=== PATIENT | female | born 1990 | race Caucasian/White ===

== ENCOUNTER → 2019-08-23 08:06 | Outpatient (CLI) | payer MEDICAID, SELFPAY ==
[2019-08-13 14:19] VITALS: BMI 29.0
[2019-08-23 12:42] LABS: Absolute Lymphocyte Count 1.41 X10^3/uL (0.83-4.51); Absolute Neutrophil Count 4.1 X10^3/uL (2.0-7.7); Basophil# 0.04 X10^3/uL; Basophil% 0.6 % (0-1); Eosinophil# 0.24 X10^3/uL; Eosinophils% 3.8 % (0-5); Hematocrit 38.6 % (37-47); Hemoglobin 12.3 g/dL (12.0-15.0); Lymphocyte # 1.41 X10^3/ul (4.0); Lymphocyte % 22.3 % (19-41); Mean Corp Hgb Conc 31.9 g/dL (32-36); Mean Corpuscular Hgb 29.3 pg (27.0-32.0); Mean Corpuscular Volume 91.9 fL (81-99); Mean Platelet Vol. 11.9 fl (6.2-12.0); Monocyte# 0.46 X10^3/uL; Monocyte% 7.3 % (0-10); NRBC Flagged by Analyzer 0 % (0-5); Neutrophil # 4.14 X10^3/uL (2.7-7.7); Neutrophil % 65.7 % (47-70); Platelet Count 231 K/mm3 (150-450); RBC Distribution Width CV 14.1 % (11.6-14.6); RBC Distribution Width SD 47.6 fl (35.1-43.9); White Blood Count 6.3 K/mm3 (4.4-11.0)
[2019-08-23 13:42] LABS: ALB/GLOB Ratio 0.9 RATIO (0.9-2.4); AST(SGOT) 76 U/L (15-37); Alanine Aminotransfer ALT/SGPT 159 U/L (13-56); Albumin, Serum 3.7 g/dL (3.2-5.0); Alkaline Phosphatase 90 U/L (45-117); Anion Gap 9 (5-15); BUN 12 mg/dL (7-18); BUN/Creat Ratio 16.3 RATIO (10-20); Chloride 108 mmol/L (98-107); Cholesterol 187 mg/dL (200); Creatinine, Serum 0.74 mg/dL (0.55-1.02); EST Glomerular Filtration Rate 99 mL/min (>60); Est Glom Filt Rate - Afr Amer 119 mL/min (>60); Globulin 4.2 g/dL (2.2-4.2); Glucose 78 mg/dL (74-106); High Density Lipoprotein 59 mg/dL; Potassium 4.2 mmol/L (3.5-5.1); Protein, Total 7.9 g/dL (6.4-8.2); Sodium Level 140 mmol/L (136-145); Thyroid Stim Hormone (TSH) 0.58 uIU/mL (0.358-3.74); Triglycerides 78 mg/dL; Very Low Density Lipoprotein 16 mg/dL (5-40)
[2019-08-26 14:29] LABS: Hepatitis C Ab >11.0 s/co ratio (0.0-0.9)
[2019-08-26 16:12] LABS: HCV log 10 6.751 (.)
== END ==
PROVIDERS: PCP Internal Medicine; Visit Provider Nurse Practitioner Family
DX: I10 Essential (primary) hypertension (principal); F31.9 Bipolar disorder, unspecified; B19.20 Unspecified viral hepatitis C without hepatic coma; F41.9 Anxiety disorder, unspecified
CPT/HCPCS: 36415; 80053; 80061; 84443; 85025; 86803; 86804; 87521; 87522

== ENCOUNTER 2020-09-28 20:01 | Emergency (ER) | payer MEDICAID, SELFPAY ==
[2019-08-13 14:19] VITALS: BMI 29.0
[2020-09-28 20:02] VITALS: BP 161/109; PULSE 118; RESP 18; TEMP 35.9; O2SAT 100; BMI 31.9
--- NOTE | 2020-09-28 20:50 | ED.VIS.GEN ---
History of Present Illness Chief Complaint: Abscess Informant: Patient Narrative: 29-year-old female presenting with right thumb pain. She states she has an abrasion which look infected. She had some scant drainage from it. She states it is tender to palpation. She not had any systemic signs or symptoms. Patient has a history of MRSA. She is also allergic to sulfa. Prior similar symptoms: Yes - Past Medical History (1) Asthma Status: Chronic (2) Bipolar 1 disorder Status: Chronic (3) Hepatitis C Status: Chronic Past Medical History - Allergies and Home Meds Allergies/Adverse Reactions: Allergies ketorolac tromethamine [From Toradol] Allergy (Verified 08/13/19 13:10) Hives Sulfa (Sulfonamide Antibiotics) Allergy (Verified 08/13/19 13:10) Swelling tramadol Allergy (Verified 08/13/19 13:10) Itching acetaminophen [From Tylenol] Adverse Reaction (Verified 08/13/19 13:10) Other LIVER DAMAGE Primary Care Physician: NOT,DEFINED [Primary Care Provider] - Prior records reviewed: Yes Past Medical History: - - Reviewed in problem list Surgical History: noncontributory, - - tubal ligation. laparoscopy. I&D right axillary abscess. Lives: Alone Smoking Status: Current every day smoker Alcohol: Rare Drugs: None - Family History Maternal Family History: Family History (Last Updated 08/09/19 @ 16:16 by Chela Murillo) Other Depression Hypertension Family History: Reports: No pertinent history Review of Systems General: Denies: Chills, Fever, Sweats Eyes: Denies: Visual changes - bilaterally, Diplopia ENT: Denies: Rhinorrhea, Sore throat Cardiovascular: Denies: Chest pain, Palpitations Respiratory: Denies: Dyspnea, Cough, Dyspnea on exertion Gastrointestinal: Denies: Abdominal pain, Nausea, Vomiting, Diarrhea, Melena, Hematochezia Genitourinary: Denies: Dysuria, Hematuria, Frequency Musculoskeletal: Reports: - - Right thumb pain. Denies: Arthralgias Skin: Reports: Rash, Wounds, - Neurological: Denies: Headache, Weakness, Numbness Psych: Denies: Depression, Anxiety Physical Exam Vital Signs/Narrative: Vital Signs Temp Pulse Resp BP Pulse Ox 09/28/20 20:02 96.6 F L 118 H 18 161/109 H 100 General: Well nourished, No Acute Distress Head: Normocephalic, Atraumatic Eyes: Perrl, EOMI ENT: Moist mucous membranes, No rhinorrhea Cardiovascular: Regular rate, Regular rhythm Respiratory: No distress, CTA bilaterally Extremities: Tenderness - Right thumb tenderness, -. Negative for: No edema Skin: Rash - Erythema and warmth over the dorsum of the right thumb proximal to the interphalangeal joint. There is no fluctuance or mass. There is no pain full range of motion of the joints. Neurological: Alert, Oriented x3 Psychological: Normal affect, Normal Mood Diagnostic/Tx/Re-eval - Medical Decision Making Patient presents with pain and redness over the right thumb. There is some area of erythema and swelling. There is no fluctuant mass. There not appear to be an infection of the joints. Patient was given 1 oxycodone in the ER which was first dose of clindamycin. Patient requests something to help her rest at night. I gave her some hydroxyzine. Patient is given wound care instructions and return precautions. Stable for discharge at this time. Impression: 1. Right thumb cellulitis ED Disposition - Plan for ED Patient: Disposition: Home or Assisted Living Instructions: ED Cellulitis Prescriptions: Clindamycin [Cleocin] 450 mg PO TID #90 cap Transmission Status: Pending to [facility] [place] [id number] Hydroxyzine HCl 25 mg PO QHS PRN PRN #10 tab PRN Reason: Insomnia Transmission Status: Pending to [facility] [id number] Referrals: NOT,DEFINED [Primary Care Provider] -
[2020-09-28] MEDS: hydrOXYzine PAM 25 MG Capsule PO (21:06)
[2020-09-28] MEDS: Clindamycin HCl 150 MG Capsule 450 MG PO (21:07)
== END 2020-09-28 21:24 | disposition home or self-care (01) ==
PROVIDERS: Emergency Provider Student in an Organized Health Care Education/Training Program
DX: L03.011 Cellulitis of right finger (principal); Z86.14 Personal history of Methicillin resistant Staphylococcus aureus infection; J45.909 Unspecified asthma, uncomplicated; F31.9 Bipolar disorder, unspecified; Z79.899 Other long term (current) drug therapy; F17.200 Nicotine dependence, unspecified, uncomplicated
CPT/HCPCS: 99283

== ENCOUNTER 2020-11-14 16:07 | Emergency (ER) | payer MEDICAID, SELFPAY ==
[2020-11-14 16:08] VITALS: BP 153/106; PULSE 102; RESP 16; TEMP 36.6; O2SAT 100; BMI 31.6
--- NOTE | 2020-11-14 16:18 | ED.VIS.GEN ---
History of Present Illness Chief Complaint: Med Refill Informant: Patient Narrative: 29-year-old female presenting for medication refill. She states has been out of her blood pressure medications because she has been in a clean house. She has not followed up with her primary care to get them refilled. She has a mild headache but no other symptoms. Patient also states that she has anxiety and is usually on Vistaril and request a refill for this as well. - Past Medical History (1) History of substance abuse Status: Chronic (2) Bipolar 1 disorder Status: Chronic (3) Hypertension Status: Chronic (4) Asthma Status: Chronic Past Medical History - Allergies and Home Meds Allergies/Adverse Reactions: Allergies ketorolac tromethamine [From Toradol] Allergy (Verified 11/14/20 16:10) Hives Sulfa (Sulfonamide Antibiotics) Allergy (Verified 11/14/20 16:10) Swelling tramadol Allergy (Verified 11/14/20 16:10) Itching acetaminophen [From Tylenol] Adverse Reaction (Verified 11/14/20 16:10) Other LIVER DAMAGE Primary Care Physician: Care Physician,No Primary [Primary Care Provider] - Prior records reviewed: Yes Past Medical History: - - Reviewed in problem list Surgical History: noncontributory, - - tubal ligation. laparoscopy. I&D right axillary abscess. Lives: - - Sober house Smoking Status: Current every day smoker Alcohol: None Drugs: None - Family History Maternal Family History: Family History (Last Updated 08/09/19 @ 16:16 by Chela Murillo) Other Depression Hypertension Family History: Reports: No pertinent history Review of Systems General: Denies: Chills, Fever, Sweats Eyes: Denies: Visual changes - bilaterally, Diplopia ENT: Denies: Rhinorrhea, Sore throat Cardiovascular: Denies: Chest pain, Palpitations Respiratory: Denies: Dyspnea, Cough, Dyspnea on exertion Gastrointestinal: Denies: Abdominal pain, Nausea, Vomiting, Diarrhea, Melena, Hematochezia Genitourinary: Denies: Dysuria, Hematuria, Frequency Musculoskeletal: Denies: Back pain, Extremity Pain Skin: Denies: Rash, Wounds Neurological: Reports: Headache. Denies: Weakness, Parasthesia, Numbness Psych: Reports: Anxiety. Denies: Depression, Suicidal thoughts, Suicidal ideations Physical Exam Vital Signs/Narrative: Vital Signs Temp Pulse Resp BP Pulse Ox 11/14/20 16:08 97.9 F 102 H 16 153/106 H 100 Inital Vital Signs reviewed: Yes General: Well nourished, No Acute Distress Head: Normocephalic, Atraumatic Eyes: Perrl, EOMI ENT: Moist mucous membranes, No rhinorrhea Cardiovascular: Regular rate, Regular rhythm Skin: Normal color, No rash Neurological: Alert, Oriented x3, Cranial nerves II-XII grossly intact Psychological: Normal affect, Normal Mood Diagnostic/Tx/Re-eval - Medical Decision Making Patient presenting for medication refill because she is living at a sober house and has not been able to follow-up with a PCP. Patient's states she states that she takes lisinopril 40 mg nightly as well as amlodipine daily she is unsure whether she takes 2.5, 5 or 10 mg but believes it is most likely 5 mg. She will have this refilled as well. She requests prescription for hydroxyzine for her anxiety and this was given as well. Impression: 1. Medication refill ED Disposition - Plan for ED Patient: Disposition: Home or Assisted Living Instructions: Med Refill, Treating Anxiety Disorders with Medication Referrals: Care Physician,No Primary [Primary Care Provider] -
[2020-11-14] MEDS: amLODIPine 5 MG Tablet PO (16:24)
[2020-11-14] MEDS: hydrOXYzine PAM 25 MG Capsule PO (16:24)
[2020-11-14] MEDS: Lisinopril 40 MG Tablet PO (16:35)
== END 2020-11-14 16:43 | disposition home or self-care (01) ==
LOC: ED 16:39
PROVIDERS: Emergency Provider Student in an Organized Health Care Education/Training Program
DX: F41.9 Anxiety disorder, unspecified (principal); I10 Essential (primary) hypertension; Z76.0 Encounter for issue of repeat prescription; F17.200 Nicotine dependence, unspecified, uncomplicated
CPT/HCPCS: 99283

== ENCOUNTER 2020-12-11 18:01 | Emergency (ER) | payer MEDICAID, SELFPAY ==
[2020-12-11 18:02] VITALS: BP 162/91; PULSE 117; RESP 17; TEMP 36.2; O2SAT 100; BMI 30.6
--- NOTE | 2020-12-11 18:09 | ED.VIS.GEN ---
History of Present Illness Chief Complaint: Abscess Informant: Patient Onset: Days - Noticed 2 days ago Context: Sudden Onset Timing: Continuous Quality: Pain Location: Right axilla Current Severity: Mild Maximum Severity: Moderate Worsened by: Palpation Relieved by: Nothing Associated Symptoms: No associated symptoms Narrative: Patient is a 30-year-old [id number] woman who is a former IV drug user presents with abscess right axilla. She denies fever, chills night sweats. She first noted bump 2 days ago. She did not try to pop it. She denies history of rheumatic fever, heart murmur, mitral prolapse or being immune suppressed. She has not used drugs for some time. She denies paresthesia, anesthesia or motor weakness right upper extremity. She has no other complaints. 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 laparoscopy. I&D right axillary abscess. Lives: Spouse/ Significant Other Smoking Status: Current every day smoker Alcohol: None Drugs: - - Covered - Family History Maternal Family History: Family History (Last Updated 08/09/19 @ 16:16 by Chela Murillo) Other Depression Hypertension Family History: Reports: No pertinent history Review of Systems General: Denies: Chills, Fever, Malaise, Subjective, Sweats Eyes: Denies: Visual changes - bilaterally, Blurred Vision - bilaterally ENT: Denies: Bilateral ear pain, Rhinorrhea, Sore throat Cardiovascular: Denies: Chest pain, Palpitations Respiratory: Denies: Dyspnea Gastrointestinal: Denies: Nausea, Vomiting, Diarrhea Musculoskeletal: Denies: Myalgias, Arthralgias, Swelling, Extremity Pain Skin: Reports: Abscess. Denies: Rash Neurological: Denies: Weakness, Parasthesia, Numbness Hematologic: Denies: Easy bruising, Easy bleeding Physical Exam Vital Signs/Narrative: Vital Signs Temp Pulse Resp BP Pulse Ox 12/11/20 18:02 97.1 F L 117 H 17 162/91 H 100 Inital Vital Signs reviewed: Yes General: Well nourished, Well developed, Obese, No Acute Distress Head: Normocephalic, Atraumatic Eyes: Perrl, EOMI. Negative for: Pale conjunctiva, Scleral icterus Cardiovascular: Regular rate, Regular rhythm, No murmurs, Normal S1, Normal S2 Respiratory: No distress, CTA bilaterally, Chest nontender Extremities: Nontender, No edema, - - We will pulses palpable. Axillary, median, radial and ulnar function intact. There is an abscess the size of a nickel right axilla. There is no erythema. There is no lymphadenopathy. Skin: Normal color, No rash, No Trauma. Negative for: Cyanosis, Diaphoresis, Jaundice Neurological: Alert, Oriented x3, Cranial nerves II-XII grossly intact, Normal Strength, Normal Sensation Psychological: - - It is anxious Diagnostic/Tx/Re-eval - Medical Decision Making She has what appears to be a subcutaneous right axillary abscess. Patient was informed that this will need drainage. She ate 1 hour prior to presentation. Since she is allergic to sulfa and has prior history of MRSA we will treat with doxycycline. Based on literature she does not meet criteria for wound culture. Procedures Procedure(s): Consent for incision and drainage of subcutaneous right axillary abscess. Patient was prepped draped sterile manner. The wound was anesthetized by local infiltration and field block. An incision was made with 10 blade. A 1 cc of purulent material drained. Blunt dissection was undertaken. Patient received first dose of antibiotic in the emergency department. ED Disposition - Plan for ED Patient: Disposition: Home or Assisted Living Diagnosis: Cutaneous abscess of axilla Instructions: ED Abscess Incision And Drainage Prescriptions: Doxycycline 100 mg PO BID #10 cap Transmission Status: Pending to [id number] Referrals: Care Physician,No Primary [Primary Care Provider] - Acacia Campos MD [STAFF PHYSICIAN] - 2 Days for wound check Additional Instructions: 1. Recommend no deodorant for 2 to 3 days 2. Recommend change in your razor every 1 to 2 weeks minimum.
[2020-12-11 18:22] VITALS: BP 156/88; PULSE 88; RESP 19; TEMP 37.1; O2SAT 99
[2020-12-11 18:25] VITALS: PULSE 88; RESP 18
[2020-12-11] MEDS: Lidocaine 1% (20 ml mdv) 20 ML Vial INFILT (18:26)
[2020-12-11] MEDS: Doxycycline 100 MG CAPSULE PO (18:28)
== END 2020-12-11 18:33 | disposition home or self-care (01) ==
LOC: ED 18:28
PROVIDERS: Emergency Provider Emergency Medicine
DX: L02.411 Cutaneous abscess of right axilla (principal); J45.909 Unspecified asthma, uncomplicated; F17.200 Nicotine dependence, unspecified, uncomplicated; E66.9 Obesity, unspecified
CPT/HCPCS: 10060; 90471; 99282

== ENCOUNTER 2021-09-20 13:46 | Emergency (ER) | payer MEDICAID, SELFPAY ==
[2021-09-20 13:47] VITALS: BP 156/87; PULSE 82; RESP 15; TEMP 36.2; O2SAT 96; BMI 18.7
--- NOTE | 2021-09-20 15:34 | EDS_ITS ---
HPI History of Present Illness Chief Complaint: Substance Abuse Informant: patient Narrative Narrative: 30-year-old female presenting to the emergency room requesting detox from fentanyl, heroin, and methamphetamines. Patient states that she has been using for about a third of her life. She states that about 4 years ago she did a detox program. She called family/friends this morning stating that she is done with the life and wants to get detox. She is currently on parole and does have an open warrant on her. She states that she did speak with her jail officer who wants her to go through detox. She uses IVD but states that she does not have any areas of injection sites that she is concerned about infection with. Patient's last use of IVD was this morning [facility] Medical History Anxiety and depression Asthma Bipolar 1 disorder Hepatitis C History of substance abuse Hypertension Seasonal allergies Home Medications lisinopril 40 mg tablet 40 mg PO DAILY #90 tab 08/13/19 [Rx Last Taken Unknown] amlodipine 5 mg PO DAILY 09/28/20 [History Last Taken Unknown] aripiprazole 15 mg PO DAILY 09/28/20 [History Last Taken Unknown] hydroxyzine HCl 25 mg PO QHS PRN PRN #10 tab 09/28/20 [Rx Last Taken Unknown] hydroxyzine pamoate 25 mg PO TID PRN PRN #30 cap 09/29/20 [Rx Last Taken Unknown] amlodipine 5 mg PO DAILY #30 tab 11/14/20 [Rx Last Taken Unknown] hydroxyzine pamoate 25 mg PO TID PRN PRN #30 cap 11/14/20 [Rx Last Taken Unknown] lisinopril 40 mg PO DAILY #30 tab 11/14/20 [Rx Last Taken Unknown] doxycycline monohydrate 100 mg PO BID #10 cap 12/11/20 [Rx Last Taken Unknown] Allergy/AdvReac Type Severity Reaction Status Date / Time ketorolac tromethamine Allergy Hives Verified 09/20/21 13:49 [From Toradol] Sulfa (Sulfonamide Allergy Swelling Verified 09/20/21 13:49 Antibiotics) tramadol Allergy Itching Verified 09/20/21 13:49 acetaminophen [From Tylenol] AdvReac Other Verified 09/20/21 13:49 Family History (Updated 08/09/19 @ 16:16 by Chela Murillo) Other Depression Hypertension Surgical History History of tubal ligation Social History Smoking Status: Current every day smoker alcohol intake: never substance use type: former substance user Date of last use: 01/07/18 what type of physical activity do you participate in: none ROS ROS ED Constitutional Constitutional ED: Reports chills and sweats; Denies fever(s) or weight loss Eyes Eyes: Denies change in vision or diplopia ENT ENT ED: Denies ear pain, rhinorrhea or sore throat Cardiovascular Cardiovascular: Denies chest pain, orthopnea, palpitations or racing heartbeat Respiratory/Chest Respiratory/Chest: Denies cough, dyspnea or orthopnea Gastrointestinal Gastrointestinal: Reports nausea; Denies abdominal pain, diarrhea or vomiting Genitourinary Genitourinary ED: Denies dysuria, hematuria or urinary frequency Musculoskeletal Musculoskeletal: Denies arthralgias or myalgias Integumentary Denies abscess or rash Neurologic Neurologic: Denies headache(s) or weakness Psychiatric Psychiatric: Reports depression; Denies anxiety, suicidal ideation or suicidal thoughts Endocrine Endocrinology: Denies polydipsia, polyphagia or polyuria Allergic/Immunologic Allergic/Immunologic ED: Denies mouth swelling, tongue swelling or urticaria EXAM Physical Exam Narrative Exam Narrative: Patient with agitation and unable to sit still. Const Vital Signs: 09/20/21 13:47 Temperature 97.1 F L Temperature Source Temporal Pulse Rate 82 Respiratory Rate 15 Blood Pressure 156/87 H Blood Pressure Mean 110 Pulse Ox 96 Oxygen Delivery Method Room Air Positive well nourished and well developed General Appearance ED: well developed HEENT Reports normocephalic, head/scalp atraumatic, TM's clear and moist mucous membranes Negative for trauma Tympanic Membrane ED: Yes TM's clear Eyes PERRL and EOMs intact bilaterally Neck no lymphadenopathy, supple and no JVD Resp normal respiratory effort and clear to auscultation bilaterally Cardio regular rate, regular rhythm and no murmurs GI normal to inspection, nondistended, normoactive bowel sounds and non-tender Palpation: soft Back/Spine no CVA tenderness and normal ROM Extremity Extremity Narrative: [facility]aling track martinez of the extremities General Extremety ED: Negative for edema General Extremity: Negative for edema Neuro oriented x3 and CN's II-XII intact bilaterally Sensorium / Orientation: alert Motor Exam: strength 5/5 throughout Psych Attitude: agitated Mood & Affect: depressed and tearful Skin no rashes or lesions noted and no wounds MDM MDM MDM Narrative Medical decision making narrative: I was informed by case management that given the current pandemic and bed situation we do not have any detox beds available at this time. Additional resources was discussed with the patient by case management. Discharge Plan Triage Chief Complaint: Substance Abuse ED Provider: Harris Fox Dx/Rx/DC Orders Clinical Impression: IVDU (intravenous drug user), Methamphetamine abuse, Opiate abuse, continuous Instructions: Understanding Methamphetamine ..., ED Opiate Abuse Prescriptions: No Action lisinopril 40 mg tablet 40 mg PO DAILY Qty: 90 RF: 1 amlodipine 2.5 MG tablet 5 mg PO DAILY RF: 0 aripiprazole 15 MG tablet 15 mg PO DAILY RF: 0 hydroxyzine HCl 25 MG tablet 25 mg PO QHS PRN PRN (Reason: Insomnia) Qty: 10 RF: 0 hydroxyzine pamoate 25 MG capsule 25 mg PO TID PRN PRN (Reason: Anxiety) Qty: 30 RF: 0 amlodipine 5 MG tablet 5 mg PO DAILY Qty: 30 RF: 0 lisinopril 40 MG tablet 40 mg PO DAILY Qty: 30 RF: 0 hydroxyzine pamoate 25 MG capsule 25 mg PO TID PRN PRN (Reason: Anxiety) Qty: 30 RF: 0 doxycycline monohydrate 100 MG capsule 100 mg PO BID Qty: 10 RF: 0 Primary Care Provider: Care Physician,No Primary Referrals: Care Physician,No Primary [Primary Care Provider] - Disposition Disposition: Home, Self Care
[2021-09-20 16:05] VITALS: RESP 16
--- NOTE | 2021-09-20 16:22 | CM.ED ---
SOCIAL WORK Referral Source: Dr. Fox Reason for Consult: Substance Abuse- requesting detox from fentanyl and meth Discussed with staff, there are not resources available to accommodate patient. Call to the Treatment Navigator. Options provided to patient who reports was dropped off here by [facility] staff. Patient requesting this worker call staff to inform them no bed available at this time. Call to [facility] and informed staff on the above. Staff member reports will be over to mushroom picker patient. Staff also updated on resources provided to patient and the Treatment Navigator's contact information. Plan: Patient to be mushroom picker by staff from [facility] who will assist patient with needs. Resources provided. Migdalia Amor, DIRECTOR OF TEENAGE ACTIVITIES, [employer]
== END 2021-09-20 16:21 | disposition home or self-care (01) ==
PROVIDERS: Emergency Provider Emergency Medicine
DX: F15.10 Other stimulant abuse, uncomplicated (principal); F11.10 Opioid abuse, uncomplicated; F41.9 Anxiety disorder, unspecified; F31.9 Bipolar disorder, unspecified; J45.909 Unspecified asthma, uncomplicated; I10 Essential (primary) hypertension; F17.200 Nicotine dependence, unspecified, uncomplicated; Z79.899 Other long term (current) drug therapy
CPT/HCPCS: 99282

== ENCOUNTER 2021-10-14 09:59 | Emergency (ER) | payer MEDICAID, SELFPAY ==
[2021-10-14 09:59] VITALS: BP 124/95; PULSE 108; RESP 24; TEMP 36.5; O2SAT 100; BMI 28.7
--- NOTE | 2021-10-14 10:12 | EKG12_ITS ---
Test Reason : SOB Blood Pressure : / mmHG Vent. Rate : 096 BPM Atrial Rate : 096 BPM P-R Int : 136 ms QRS Dur : 090 ms QT Int : 350 ms P-R-T Axes : 038 033 048 degrees QTc Int : 442 ms Normal sinus rhythm Normal ECG Confirmed by MATT TRIPP, BG ([id number]), subeditor RAVIN BLANK ([id number]) on 10/20/2021 12:04:15 PM Referred By: MR Confirmed By:BG GUTIERREZ MD
[2021-10-14 10:34] VITALS: O2SAT 100
[2021-10-14 10:49] LABS: Absolute Lymphocyte Count 1.06 X10^3/uL (0.83-4.51); Absolute Neutrophil Count 1.7 X10^3/uL (2.0-7.7); Basophil# 0.01 X10^3/uL; Basophil% 0.3 % (0-1); Eosinophil# 0.07 X10^3/uL; Eosinophils% 2.1 % (0-5); Hematocrit 21.6 % (37-47); Hemoglobin 5.6 g/dL (12.0-15.0); Lymphocyte # 1.06 X10^3/ul (0.83-4.51); Lymphocyte % 32.5 % (19-41); Mean Corp Hgb Conc 25.9 g/dL (32-36); Mean Corpuscular Hgb 15.6 pg (27.0-32.0); Mean Corpuscular Volume 60.2 fL (81-99); Mean Platelet Vol. 10.2 fl (6.2-12.0); Monocyte# 0.42 X10^3/uL; Monocyte% 12.9 % (0-10); NRBC Flagged by Analyzer 0 % (0-5); Neutrophil # 1.69 X10^3/uL (2.7-7.7); Neutrophil % 51.9 % (47-70); POSITIVE COUNT YES; Platelet Count 246 K/mm3 (150-450); RBC Distribution Width CV 19.7 % (11.6-14.6); Red Blood Count 3.59 M/mm3 (4.2-5.4); White Blood Count 3.3 K/mm3 (4.4-11.0)
[2021-10-14 10:51] LABS: Differential Indicated SCAN CRITERIA MET
[2021-10-14 11:05] LABS: Anion Gap 6 (5-15); BUN 6 mg/dL (7-18); BUN/Creat Ratio 10.3 RATIO (10-20); Calcium,Total 8.5 mg/dL (8.5-10.1); Chloride 109 mmol/L (98-107); Creatinine, Serum 0.58 mg/dL (0.55-1.02); EST Glomerular Filtration Rate 128 mL/min (>60); Est Glom Filt Rate - Afr Amer 155 mL/min (>60); Estimated Creatinine Clearance 121.36 ml/min; Glucose 83 mg/dL (74-106); Potassium 4.3 mmol/L (3.5-5.1); Sodium Level 138 mmol/L (136-145); Troponin-I HS 4 pg/mL (3.0-54.0)
--- NOTE | 2021-10-14 11:20 | RAD_ITS ---
INDICATION: chest pain EXAMINATION/TECHNIQUE: X-RAY - XR Chest 1 View COMPARISON: 10/25/2014. FINDINGS: LINES/DEVICES: None. LUNGS: No consolidation, edema or effusion. No pneumothorax. No evidence of parenchymal contusion. MEDIASTINUM AND CARDIOVASCULAR STRUCTURES: Cardiac silhouette not enlarged. Central airways and mediastinal contour are unremarkable. BONES AND SOFT TISSUES: Healed left rib fracture is seen. RAD/Chest 1 View (Portable) IMPRESSION: Healed left rib fracture. No radiographic evidence of acute cardiopulmonary disease. Electronically Signed: Meek Coleman MD at 11:49 EST Tel , Service support ,
[2021-10-14 11:23] LABS: Hypochromasia 3+; Microcytosis 2+
[2021-10-14 11:24] LABS: Anisocytosis 1+
--- NOTE | 2021-10-14 11:50 | EDS_ITS ---
HPI HPI - URI History of Present Illness Chief Complaint: Shortness of Breath Narrative Narrative: 30-year-old female with cough, chills, body aches for 3 days. Patient states that she has had pain with coughing last treatment feels a little bit short of breath. Patient states she is currently in a sober house and has not been doing any drugs. She has not had a known fever. Patient does have some sick contacts who had COVID-19. Patient has not been vaccinated for COVID- 19. She has not previously had COVID-19. ROS ROS ED Constitutional Constitutional ED: Reports chills and subjective Eyes Eyes: Denies blurry vision or diplopia ENT ENT ED: Reports rhinorrhea; Denies sore throat Cardiovascular Cardiovascular: Reports chest pain Respiratory/Chest Respiratory/Chest: Reports cough and dyspnea Gastrointestinal Gastrointestinal: Denies abdominal pain, nausea or vomiting Genitourinary Genitourinary ED: Denies dysuria or hematuria Musculoskeletal Musculoskeletal: Reports myalgias; Denies arthralgias or neck pain Integumentary Denies Abrasions or rash Neurologic Neurologic: Reports headache(s); Denies paresthesias or weakness Psychiatric Psychiatric: Denies anxiety or depression [facility] Medical History Anxiety and depression Asthma Bipolar 1 disorder Hepatitis C History of substance abuse Hypertension Seasonal allergies Home Medications lisinopril 40 mg tablet 40 mg PO DAILY #90 tab 08/13/19 [Rx Last Taken Unknown] amlodipine 5 mg PO DAILY 09/28/20 [History Last Taken Unknown] aripiprazole 15 mg PO DAILY 09/28/20 [History Last Taken Unknown] hydroxyzine HCl 25 mg PO QHS PRN PRN #10 tab 09/28/20 [Rx Last Taken Unknown] hydroxyzine pamoate 25 mg PO TID PRN PRN #30 cap 09/29/20 [Rx Last Taken Unknown] amlodipine 5 mg PO DAILY #30 tab 11/14/20 [Rx Last Taken Unknown] hydroxyzine pamoate 25 mg PO TID PRN PRN #30 cap 11/14/20 [Rx Last Taken Unknown] lisinopril 40 mg PO DAILY #30 tab 11/14/20 [Rx Last Taken Unknown] doxycycline monohydrate 100 mg PO BID #10 cap 12/11/20 [Rx Last Taken Unknown] Allergy/AdvReac Type Severity Reaction Status Date / Time ketorolac tromethamine Allergy Hives Verified 10/14/21 10:36 [From Toradol] Sulfa (Sulfonamide Allergy Swelling Verified 10/14/21 10:36 Antibiotics) tramadol Allergy Itching Verified 10/14/21 10:36 acetaminophen [From Tylenol] AdvReac Other Verified 10/14/21 10:36 Family History Other Depression Hypertension Surgical History History of tubal ligation Social History Smoking Status: Current every day smoker tobacco type: cigarettes alcohol intake: never substance use type: former substance user Date of last use: 01/07/18 what type of physical activity do you participate in: none EXAM Physical Exam Const Vital Signs: 10/14/21 09:59 10/14/21 10:34 Temperature 97.7 F L Temperature Source Temporal Pulse Rate 108 H Respiratory Rate 24 H Respiratory Effort Normal Non-Labored Respiratory Depth Normal Respiratory Pattern Normal Blood Pressure 124/95 H Blood Pressure Mean 104 Pulse Ox 100 100 Oxygen Delivery Method Room Air Room Air Positive well nourished General Appearance ED: NAD and pallor; Negative for cyanotic HEENT Reports moist mucous membranes normocephalic and atraumatic Eyes PERRL and EOMs intact bilaterally Neck supple and no meningeal signs Resp normal respiratory effort and clear to auscultation bilaterally Cardio Rate: tachycardic Rhythm: regular rhythm Extremity normal to inspection General Extremety ED: Negative for cyanosis General Extremity: Negative for cyanosis Neuro oriented x3 and CN's II-XII intact bilaterally Sensorium / Orientation: alert Motor Exam: strength 5/5 throughout Psych mental status grossly normal Skin General Skin Exam: pallor; Negative for jaundice MDM MDM MDM Narrative Medical decision making narrative: Presenting with viral symptoms. She is concerned she has COVID-19. She does state that she has pain when she coughs I did check an EKG which on my interpretation shows a sinus rhythm with a ventricular rate of 96 bpm without sign of ischemic change. Chest x-ray on my interpretation shows no acute cardiopulmonary process and the radiologist does agree. CBC shows she is leukopenic white blood cell count of 3.3. Her hemoglobin is 5.6 which she states is not new. She states her last hemoglobin checked was around 4 and she has been lost to follow-up for the anemia and transfusions. Since this is actually higher than previously I do not believe this needs to be emergently transfused especially since the patient is not having any difficulty ambulating or lightheadedness. Her oxygen is 100% on room air. She is slightly tachycardic. I have low clinical suspicion for PE. Patient was tested for COVID-19 and is positive. I will refer her for the monoclonal antibodies however she states she is unsure if she wants these c urrently. Patient is to return for any new or worsening symptoms. Impression: 1. COVID-19 2. Anemia Lab Data Attestation: I reviewed the patient's lab results. Labs: Laboratory Results - last 24 hr 10/14/21 10/14/21 10:40 10:40 WBC 3.3 L RBC 3.59 L Hgb 5.6 L* Hct 21.6 L MCV 60.2 L MCH 15.6 L MCHC 25.9 L RDW Std Deviation 42.0 RDW Coeff of Peri 19.7 H Plt Count 246 MPV 10.2 Immature Gran % (Auto) 0.300 Neut % (Auto) 51.9 Lymph % (Auto) 32.5 [place] % (Auto) 12.9 H Eos % (Auto) 2.1 Baso % (Auto) 0.3 Absolute Neuts (auto) 1.7 L Absolute Lymphs (auto) 1.06 Nucleated RBC % 0 Diff Path Review May foll Hypochromasia 3+ Anisocytosis 1+ Microcytosis 2+ Sodium 138 Potassium 4.3 Chloride 109 H Carbon Dioxide 23.0 Anion Gap 6 BUN 6 L Creatinine 0.58 Estim Creat Clear Calc 121.36 Est GFR (MDRD) Af Amer 155 Est GFR (MDRD) Non-Af 128 BUN/Creatinine Ratio 10.3 Glucose 83 Calcium 8.5 Troponin I High Sens 4 Radiography Diagnostic Testing: Clinical Impression(s) from Imaging Studies Chest X-Ray 10/14/21 11:20 IMPRESSION: Healed left rib fracture. No radiographic evidence of acute cardiopulmonary disease. Electronically Signed: Meek Coleman MD at 11:49 EST Tel , Service support , Discharge Plan Triage Chief Complaint: Shortness of Breath ED Provider: Gamal Jackson Dx/Rx/DC Orders Instructions: Coronavirus Disease 2019 (COVID-19): Caring for Yourself or Others, ED - COVID Monoclonal AB Infusion ... Prescriptions: No Action lisinopril 40 mg tablet 40 mg PO DAILY Qty: 90 RF: 1 amlodipine 2.5 MG tablet 5 mg PO DAILY RF: 0 aripiprazole 15 MG tablet 15 mg PO DAILY RF: 0 hydroxyzine HCl 25 MG tablet 25 mg PO QHS PRN PRN (Reason: Insomnia) Qty: 10 RF: 0 hydroxyzine pamoate 25 MG capsule 25 mg PO TID PRN PRN (Reason: Anxiety) Qty: 30 RF: 0 amlodipine 5 MG tablet 5 mg PO DAILY Qty: 30 RF: 0 lisinopril 40 MG tablet 40 mg PO DAILY Qty: 30 RF: 0 hydroxyzine pamoate 25 MG capsule 25 mg PO TID PRN PRN (Reason: Anxiety) Qty: 30 RF: 0 doxycycline monohydrate 100 MG capsule 100 mg PO BID Qty: 10 RF: 0 Primary Care Provider: Care Physician,No Primary Referrals: Javier Gauthier MD [STAFF PHYSICIAN] - As soon as possible Care Physician,No Primary [Primary Care Provider] - Disposition Disposition: Home, Self Care
[2021-10-14 12:00] VITALS: PULSE 110; RESP 18; O2SAT 97
[2021-10-18 14:21] LABS: Pathologist Review Reviewed
== END 2021-10-14 12:01 | disposition home or self-care (01) ==
PROVIDERS: Emergency Provider Student in an Organized Health Care Education/Training Program
DX: U07.1 COVID-19 (principal); D64.9 Anemia, unspecified; I10 Essential (primary) hypertension; F31.9 Bipolar disorder, unspecified; F41.9 Anxiety disorder, unspecified; F17.210 Nicotine dependence, cigarettes, uncomplicated
CPT/HCPCS: 36415; 71045; 80048; 84484; 85025; 87426; 93005; 99283

== ENCOUNTER 2021-11-26 09:31 | Outpatient (CLI) | payer MEDICAID, SELFPAY ==
[2021-11-26 09:44] VITALS: BP 157/104; PULSE 91; RESP 14; TEMP 37; O2SAT 100; BMI 27.6
[2021-11-26 10:44] VITALS: BP 129/101; PULSE 81; RESP 16; TEMP 36.8; O2SAT 100
[2021-11-26 11:44] VITALS: BP 130/96; PULSE 79; RESP 16; TEMP 36.8
[2021-11-26 12:49] VITALS: BP 140/83; PULSE 76; RESP 16; TEMP 36.7; O2SAT 100
[2021-11-26 13:49] VITALS: BP 138/94; PULSE 75; RESP 16; TEMP 36.3; O2SAT 100
[2021-11-26 14:35] VITALS: BP 140/98; PULSE 86; RESP 16; TEMP 36.3; O2SAT 98
== END 2021-11-26 23:59 | disposition home or self-care (01) ==
LOC: MEDOUTP 09:32
PROVIDERS: Referring Provider Internal Medicine; Visit Provider Internal Medicine
DX: D64.9 Anemia, unspecified (principal)
CPT/HCPCS: 36430; 86850; 86900; 86901; 86920; 86922; J7040; P9016; A4216

== ENCOUNTER 2021-12-29 20:43 | Emergency (ER) | payer MEDICAID, SELFPAY ==
[2021-12-29 20:44] VITALS: BP 154/107; PULSE 113; RESP 18; TEMP 36.1; O2SAT 100; BMI 29.1
--- NOTE | 2021-12-29 23:43 | EKG12_ITS ---
Test Reason : SYNCOPE Blood Pressure : / mmHG Vent. Rate : 086 BPM Atrial Rate : 086 BPM P-R Int : 148 ms QRS Dur : 094 ms QT Int : 394 ms P-R-T Axes : 050 038 047 degrees QTc Int : 471 ms Normal sinus rhythm with sinus arrhythmia Normal ECG Confirmed by MARK TRIPP, LINDA ([id number]), photograph editor SONDRA WHITE ([id number]) on 01/03/2022 8:59:51 AM Referred By: Confirmed By:FINN FLORES MD
--- NOTE | 2021-12-30 | RAD_ITS ---
STUDY: X-RAY CHEST REASON FOR EXAM: Female, 31 years old. syncope TECHNIQUE: AP COMPARISON: 10/14/2021 FINDINGS: The lungs are clear and expanded. There is no demonstrated pleural abnormality. Normal size heart. Normal mediastinum and jose enrique. Normal visualized pulmonary arteries. Normal visualized aortic arch and descending thoracic aorta. Normal visualized thoracic spine. There is a healed left rib fracture. There is no demonstrated abnormality of the visualized soft tissue structures of the upper abdomen. RAD/Chest 1 View (Portable) IMPRESSION: Negative x-ray examination of the chest. Electronically Signed: Negro Smith MD at 1:10 EDT ,
[2021-12-30 00:20] LABS: Absolute Lymphocyte Count 1.95 X10^3/uL (0.83-4.51); Absolute Neutrophil Count 3.4 X10^3/uL (2.0-7.7); Basophil# 0.04 X10^3/uL; Basophil% 0.6 % (0-1); Eosinophil# 0.21 X10^3/uL; Eosinophils% 3.3 % (0-5); Hematocrit 33.1 % (37-47); Hemoglobin 9.8 g/dL (12.0-15.0); Lymphocyte # 1.95 X10^3/ul (0.83-4.51); Mean Corp Hgb Conc 29.6 g/dL (32-36); Mean Platelet Vol. 9.9 fl (6.2-12.0); Monocyte# 0.64 X10^3/uL; Monocyte% 10.2 % (0-10); NRBC Flagged by Analyzer 0 % (0-5); Neutrophil # 3.44 X10^3/uL (2.7-7.7); Neutrophil % 54.6 % (47-70); POSITIVE MORPHOLOGY YES; Platelet Count 306 K/mm3 (150-450); RBC Distribution Width CV 24.1 % (11.6-14.6); RBC Distribution Width SD 61.2 fl (35.1-43.9); Red Blood Count 4.66 M/mm3 (4.2-5.4); White Blood Count 6.3 K/mm3 (4.4-11.0)
[2021-12-30 00:24] LABS: Differential Indicated SCAN CRITERIA MET
[2021-12-30 00:40] LABS: Anion Gap 6 (5-15); BUN 14 mg/dL (7-18); BUN/Creat Ratio 21.3 RATIO (10-20); Calcium,Total 9.6 mg/dL (8.5-10.1); Chloride 107 mmol/L (98-107); Creatinine, Serum 0.66 mg/dL (0.55-1.02); EST Glomerular Filtration Rate 111 mL/min (>60); Est Glom Filt Rate - Afr Amer 134 mL/min (>60); Estimated Creatinine Clearance 110.11 ml/min; Glucose 88 mg/dL (74-106); Magnesium 2.2 mg/dL (1.6-2.6); Potassium 3.9 mmol/L (3.5-5.1); Sodium Level 138 mmol/L (136-145); Troponin-I HS 6 pg/mL (3.0-54.0)
[2021-12-30 00:43] LABS: Anisocytosis 2+; Microcytosis 2+
[2021-12-30 01:11] VITALS: PULSE 67; RESP 16; O2SAT 99
[2021-12-30 02:52] VITALS: BP 139/109; BP 141/105; BP 150/101; PULSE 71; PULSE 75; PULSE 81
[2021-12-30 03:00] VITALS: BP 139/109; PULSE 82; RESP 16; O2SAT 100
--- NOTE | 2021-12-30 04:07 | EX.ED.DYSGE1 ---
HPI History of Present Illness Chief Complaint: Syncope Narrative Narrative: Patient is a 31-year-old female who states that she was at [employer] this evening and while standing up she began to feel lightheaded and weak. She states she went outside and smoke a cigarette and then sat down on the curb. She states she sat there for a few minutes and when she got up and began to walk she felt lightheaded dizzy and had a brief episode of syncope. She states that she was awake as she had the ground. She denies any blood thinner use. She states she does have a remote history of MS which she is not being treated for and has needed a blood transfusion in the past because of low iron. She states she is concerned this once again because of her weakness and syncopal event and therefore comes in for evaluation [facility] Medical History Anxiety and depression Asthma Bipolar 1 disorder Hepatitis C History of substance abuse Hypertension Seasonal allergies Home Medications lisinopril 40 mg tablet 40 mg PO DAILY #90 tab 08/13/19 [Rx Last Taken Unknown] amlodipine 5 mg PO DAILY 09/28/20 [History Last Taken Unknown] amlodipine 5 mg PO DAILY #30 tab 11/14/20 [Rx Last Taken Unknown] Allergy/AdvReac Type Severity Reaction Status Date / Time ketorolac tromethamine Allergy Hives Verified 12/29/21 20:45 [From Toradol] Sulfa (Sulfonamide Allergy Swelling Verified 12/29/21 20:45 Antibiotics) tramadol Allergy Itching Verified 12/29/21 20:45 acetaminophen [From Tylenol] AdvReac Other Verified 12/29/21 20:45 Family History Other Depression Hypertension Surgical History History of tubal ligation Social History Smoking Status: Current every day smoker tobacco type: cigarettes alcohol intake: never substance use type: former substance user Date of last use: 01/07/18 what type of physical activity do you participate in: none ROS ROS ED Constitutional Constitutional ED: Denies chills or fever(s) ENT ENT ED: Denies sore throat Cardiovascular Cardiovascular: Denies chest pain, palpitations or racing heartbeat Respiratory/Chest Respiratory/Chest: Denies cough or dyspnea Gastrointestinal Gastrointestinal: Denies abdominal pain, diarrhea, nausea or vomiting Genitourinary Genitourinary ED: Denies dysuria Musculoskeletal Musculoskeletal: Denies back pain, myalgias or neck pain Integumentary Denies rash Neurologic Neurologic: Reports weakness and other Details: Positive syncope ; Denies headache(s) Hematologic/Lymphatic Hematologic/Lymphatic: Denies easy bleeding or easy bruising EXAM Physical Exam Const Vital Signs: 12/29/21 20:44 12/29/21 22:58 12/30/21 01:11 Temperature 97 F L Temperature Source Temporal Pulse Rate 113 H 67 Pulse Rate [Lying] Pulse Rate [Sitting (for 1 minute prior to obtaining)] Pulse Rate [Standing (for 1 minute prior to obtaining)] Respiratory Rate 18 16 Respiratory Effort Normal Respiratory Pattern Normal Blood Pressure 154/107 H Blood Pressure [Lying] Blood Pressure [Sitting (for 1 minute prior to obtaining)] Blood Pressure [Standing (for 1 minute prior to obtaining)] Blood Pressure Mean 122 Blood Pressure Mean [Lying] Blood Pressure Mean [Sitting (for 1 minute prior to obtaining)] Blood Pressure Mean [Standing (for 1 minute prior to obtaining)] Pulse Ox 100 99 Oxygen Delivery Method Room Air Room Air 12/30/21 02:52 12/30/21 03:00 Temperature Temperature Source Pulse Rate 82 Pulse Rate [Lying] 71 Pulse Rate [Sitting (for 1 minute prior to obtaining)] 75 Pulse Rate [Standing (for 1 minute prior to obtaining)] 81 Respiratory Rate 16 Respiratory Effort Respiratory Pattern Blood Pressure 139/109 H Blood Pressure [Lying] 141/105 H Blood Pressure [Sitting (for 1 minute prior to obtaining)] 150/101 H Blood Pressure [Standing (for 1 minute prior to obtaining)] 139/109 H Blood Pressure Mean 119 Blood Pressure Mean [Lying] 117 Blood Pressure Mean [Sitting (for 1 minute prior to obtaining)] 117 Blood Pressure Mean [Standing (for 1 minute prior to obtaining)] 119 Pulse Ox 100 Oxygen Delivery Method Room Air Positive well nourished and well developed General Appearance ED: well developed HEENT Reports dry mucous membranes HEENT Narrative: No signs of depressed or basilar skull fracture Mouth ED: Yes dry mucous membranes Mouth: dry mucous membranes Eyes PERRL and EOMs intact bilaterally Neck supple Neck Narrative: No midline pain on palpation no bony deformity or step-off of the cervical spine Resp normal respiratory effort and clear to auscultation bilaterally Cardio regular rhythm Rate: other Other Details: Slightly tachycardic rate with regular rhythm GI normal to inspection, nondistended, normoactive bowel sounds, non-tender, non-distended and no masses Auscultation: normoactive bowel sounds Palpation: soft Back/Spine Back/Spine Narrative: No bony deformity step-off of the thoracic or lumbar spine no midline pain on palpation Extremity normal to inspection Extremity Narrative: Pelvis is stable there is no shortening or external rotation of either lower extremity. Patient is able to move all extremities without difficulty Neuro oriented x3 and CN's II-XII intact bilaterally Neuro Narrative: NIH stroke scale score of 0 Sensorium / Orientation: alert Motor Exam: strength 5/5 throughout Psych mental status grossly normal Skin no rashes or lesions noted Skin Narrative: No abrasions or ecchymosis noted MDM MDM MDM Narrative Medical decision making narrative: Patient presented to the ER mildly hypertensive but otherwise with normal neurologic exam and no signs of depressed or basilar skull fracture. Her report of syncope is most consistent with orthostasis therefore orthostatic vitals were obtained but were negative. Patient underwent a cardiac work-up because of her syncopal event and previous need for transfusion however work-up showed normal troponin with H&H at her baseline of approximately 10 and no signs of electrolyte or kidney damage. Therefore at this time as patient's overall work-up is negative and she is not requiring a transfusion or needing electrolyte replacement or having changes to suggest cardiac damage I feel he is safe for home because of the 1 bout of syncope and can follow-up on an outpatient basis. Lab Data Attestation: I reviewed the patient's lab results. Labs: Laboratory Results - last 24 hr 12/30/21 12/30/21 00:16 00:16 WBC 6.3 RBC 4.66 Hgb 9.8 L Hct 33.1 L MCV 71.0 L MCH 21.0 L MCHC 29.6 L RDW Std Deviation 61.2 H RDW Coeff of Peri 24.1 H Plt Count 306 MPV 9.9 Immature Gran % (Auto) 0.300 Neut % (Auto) 54.6 Lymph % (Auto) 31.0 [place] % (Auto) 10.2 H Eos % (Auto) 3.3 Baso % (Auto) 0.6 Absolute Neuts (auto) 3.4 Absolute Lymphs (auto) 1.95 Nucleated RBC % 0 Anisocytosis 2+ Microcytosis 2+ Sodium 138 Potassium 3.9 Chloride 107 Carbon Dioxide 25.0 Anion Gap 6 BUN 14 Creatinine 0.66 Estim Creat Clear Calc 110.11 Est GFR (MDRD) Af Amer 134 Est GFR (MDRD) Non-Af 111 BUN/Creatinine Ratio 21.3 H Glucose 88 Calcium 9.6 Magnesium 2.2 Troponin I High Sens 6 Radiography Diagnostic Testing: Clinical Impression(s) from Imaging Studies Chest X-Ray 12/30/21 00:00 IMPRESSION: Negative x-ray examination of the chest. Electronically Signed: Negro Smith MD at 1:10 EDT , Discharge Plan Triage Chief Complaint: Syncope ED Provider: Taurus Dumont Dx/Rx/DC Orders Clinical Impression: Syncope Instructions: What Is Syncope? Prescriptions: No Action lisinopril 40 mg tablet 40 mg PO DAILY Qty: 90 RF: 1 amlodipine 2.5 MG tablet 5 mg PO DAILY RF: 0 amlodipine 5 MG tablet 5 mg PO DAILY Qty: 30 RF: 0 Primary Care Provider: Acacia Campos Referrals: Acacia Campos MD [Primary Care Provider] - Disposition Disposition: Home, Self Care Discharge Date/Time: 12/30/21 04:15
== END 2021-12-30 04:15 | disposition home or self-care (01) ==
PROVIDERS: Emergency Provider Emergency Medicine; PCP Internal Medicine; Visit Provider Emergency Medicine
DX: R55 Syncope and collapse (principal); G35 Multiple sclerosis; I10 Essential (primary) hypertension; Z79.899 Other long term (current) drug therapy; J45.909 Unspecified asthma, uncomplicated; Z86.19 Personal history of other infectious and parasitic diseases
CPT/HCPCS: 71045; 80048; 83735; 84484; 85025; 93005; 99284; A4216

== ENCOUNTER 2023-05-04 08:28 | Inpatient (IN) | payer MEDICAID, SELFPAY ==
[2023-05-04 08:29] VITALS: BP 156/108; PULSE 98; RESP 18; TEMP 36.6; O2SAT 97; BMI 31.9
--- NOTE | 2023-05-04 08:52 | EX.ED.SAOD ---
HPI History of Present Illness Chief Complaint: Substance Abuse Informant: patient Narrative Narrative: Presenting here for substance abuse wanting help. 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 Also uses heroin. Drinks alcohol every other day. Drink of choice is liquor. She will drink up to a pint of liquor. Denies tremors in the morning. Her last IV use with heroin was a day and a half ago. She states she has cramps and diarrhea and sweats. She smokes meth almost daily last use was 2 AM this morning. She states she was 90 days in nursing home up to a week ago however was using heroin in nursing home. She has been to voluntary involuntary detox in the past. Her last menstrual period was on the eighth. Denies fevers. She reported she spoke with [facility], was told to go through facility here and transition to their program. Prior similar symptoms: Yes PFSH [facility] Medical History Anxiety and depression Asthma Bipolar 1 disorder Hepatitis C History of substance abuse Hypertension Seasonal allergies Home Medications lisinopril 40 mg tablet 40 mg PO DAILY #90 tabs 08/13/19 [Rx Last Taken 05/03/23] amlodipine 10 mg tablet 10 mg PO DAILY HTN 05/04/23 [History Last Taken Unknown] hydroxyzine pamoate 50 mg capsule (Vistaril) 50 mg PO BID PRN itching 05/04/23 [History Last Taken 05/04/23] quetiapine 100 mg tablet (Seroquel) 100 mg PO DAILY . 05/04/23 [History Last Taken Unknown] spironolactone PO DAILY PRN HTN 05/04/23 [History Last Taken 04/28/23] Allergy/AdvReac Type Severity Reaction Status Date / Time ketorolac tromethamine Allergy Hives Verified 05/04/23 08:29 [From Toradol] Sulfa (Sulfonamide Allergy Swelling Verified 05/04/23 08:29 Antibiotics) tramadol Allergy Itching Verified 05/04/23 08:29 acetaminophen [From Tylenol] AdvReac Other Verified 05/04/23 08:29 Family History Other Depression Hypertension Surgical History History of tubal ligation Social History Smoking Status: Current every day smoker tobacco type: cigarettes alcohol intake: never substance use type: former substance user Date of last use: 01/07/18 what type of physical activity do you participate in: none ROS ROS ED Constitutional Constitutional ED: Reports sweats; Denies chills or fever(s) Eyes Eyes: Denies change in vision ENT ENT ED: Denies dysphagia or sore throat Cardiovascular Cardiovascular: Denies chest pain, leg edema, palpitations or racing heartbeat Respiratory/Chest Respiratory/Chest: Denies cough, dyspnea or dyspnea on exertion Gastrointestinal Gastrointestinal: Reports diarrhea; Denies abdominal pain, nausea or vomiting Genitourinary Genitourinary ED: Denies dysuria, hematuria or urinary frequency Musculoskeletal Musculoskeletal: Denies back pain, extremity pain or neck pain Integumentary Denies rash or wounds Neurologic Neurologic: Denies headache(s), paresthesias or weakness EXAM Physical Exam Const Vital Signs: 05/04/23 08:29 05/04/23 10:30 Temperature 97.8 F 98.1 F Temperature Source Temporal Oral Pulse Rate 98 79 Respiratory Rate 18 16 Blood Pressure 156/108 H 138/79 H Blood Pressure Mean 124 98 Pulse Ox 97 98 Oxygen Delivery Method Room Air Room Air Positive well nourished and well developed Constitutional Narrative: Slightly anxious, cooperative, answering questions appropriately. General Appearance ED: well developed HEENT Reports moist mucous membranes normocephalic and atraumatic Eyes PERRL, EOMs intact bilaterally and conjunctivae normal General Eye ED: Yes normal appearance of both eyes Neck no lymphadenopathy and supple General: Negative for tenderness Chest Wall Chest: Negative for tenderness Resp normal respiratory effort and normal air movement Effort and Inspection: symmetric chest movement; Negative for respiratory distress Cardio regular rate, regular rhythm and no murmurs Peripheral Pulses: pulses 2+ throughout GI normal to inspection, nondistended, normoactive bowel sounds and non-tender Palpation: Negative for guarding or rebound tenderness present Back/Spine no CVA tenderness and no thoracic nor lumbar tenderness Extremity normal to inspection General Extremety ED: Negative for edema or tenderness General Extremity: Negative for edema Neuro oriented x3 and no sensory deficits noted Sensorium / Orientation: awake and alert Psych Psych Narrative: Denies suicidal homicidal ideations. Denies hallucinations. Mood & Affect: anxious Skin Skin Narrative: Bilateral arm scattered excoriations years seems to be previous track martinez, no infection seen. MDM MDM MDM Narrative Medical decision making narrative: Interventions / MDM: Differential diagnosis: Polysubstance dependence, alcohol dependence Diagnosis considered but do not suspect: N/A My EKG interpretation: N/A Imaging independently reviewed and interpreted by myself: N/A External documents reviewed: N/A Test considered but not ordered:N/A ED course: Patient admits to polysubstance use. Denies suicidal homicidal ideations. Does report having sweats and diarrhea. No nausea or vomiting. Laboratory studies obtained. Will discuss with hospitalist service for admission. Discussed with hospitalist Dr. Bowser for admission Re-evaluation: stable Disposition discussed with patient/family/significant other: Case discussed with consulting clinician: Hospitalist This note was generated with [employer] dictation software. It may contain incorrect words, spelling, and punctuation that were not noted in checking the note before signing. Lab Data Attestation: I reviewed the patient's lab results. Labs: Laboratory Results - last 24 hr 05/04/23 05/04/23 09:54 10:10 WBC 6.8 RBC 4.50 Hgb 12.3 Hct 38.7 MCV 86.0 MCH 27.3 MCHC 31.8 L RDW Std Deviation 45.1 H RDW Coeff of Peri 14.5 Plt Count 226 MPV 11.4 Immature Gran % (Auto) 0.300 Neut % (Auto) 58.8 Lymph % (Auto) 29.2 [place] % (Auto) 8.8 Eos % (Auto) 2.6 Baso % (Auto) 0.3 Absolute Neuts (auto) 4.0 Absolute Lymphs (auto) 1.99 Nucleated RBC % 0 Sodium 143 Potassium 3.4 L Chloride 110 H Carbon Dioxide 24.0 Anion Gap 9 BUN 17 Creatinine 0.77 Estim Creat Clear Calc 93.51 Est GFR (MDRD) Af Amer 111 Est GFR (MDRD) Non-Af 92 BUN/Creatinine Ratio 22.1 H Glucose 99 Calcium 9.3 Urine Test Negative Urine Opiates Screen NEGATIVE Urine Methadone Screen NEGATIVE Ur Barbiturates Screen NEGATIVE Ur Phencyclidine Scrn NEGATIVE Ur Amphetamines Screen POSITIVE H MDMA (Ecstasy) Screen POSITIVE H U Benzodiazepines Scrn NEGATIVE Urine Cocaine Screen NEGATIVE U Cannabinoids Screen NEGATIVE Ur Drug Screen Comment Ethyl Alcohol < 3.0 Discharge Plan Dx/Rx/DC Orders Clinical Impression: Alcohol dependence, Polysubstance abuse Disposition Disposition: Acute Care Hospital [facility] Discharge Date/Time: 05/04/23 11:14
[2023-05-04 10:04] LABS: Internal QC Validated? YES +Cl - CLEAR BKGD; Pregnancy, Urine Negative Negative
[2023-05-04 10:15] LABS: Amphetamine Urine VISTA POSITIVE (<1000 ng/mL); Barbiturate Urine VISTA NEGATIVE (< 200 ng/mL); Benzodiazepine Urine VISTA NEGATIVE (< 200 ng/mL); Cocaine Urine VISTA NEGATIVE (< 300 ng/mL); Ecstacy Urine VISTA POSITIVE (< 500 ng/mL); Methadone Urine VISTA NEGATIVE (< 300 ng/mL); PCP Urine VISTA NEGATIVE (< 25 ng/mL); THC Urine VISTA NEGATIVE (< 50 ng/mL); Vista UDS pH Range 5
[2023-05-04 10:17] LABS: Absolute Lymphocyte Count 1.99 X10^3/uL (0.83-4.51); Basophil# 0.02 X10^3/uL; Basophil% 0.3 % (0-1); Eosinophil# 0.18 X10^3/uL; Eosinophils% 2.6 % (0-5); Hematocrit 38.7 % (37-47); Hemoglobin 12.3 g/dL (12.0-15.0); Lymphocyte # 1.99 X10^3/ul (0.83-4.51); Lymphocyte % 29.2 % (19-41); Mean Corp Hgb Conc 31.8 g/dL (32-36); Mean Corpuscular Hgb 27.3 pg (27.0-32.0); Mean Platelet Vol. 11.4 fl (6.2-12.0); Monocyte% 8.8 % (0-10); NRBC Flagged by Analyzer 0 % (0-5); Neutrophil # 4.01 X10^3/uL (2.7-7.7); Neutrophil % 58.8 % (47-70); Platelet Count 226 K/mm3 (150-450); RBC Distribution Width CV 14.5 % (11.6-14.6); RBC Distribution Width SD 45.1 fl (35.1-43.9); White Blood Count 6.8 K/mm3 (4.4-11.0)
[2023-05-04 10:30] VITALS: BP 138/79; PULSE 79; RESP 16; TEMP 36.7; O2SAT 98
[2023-05-04 10:33] LABS: Anion Gap 9 (5-15); BUN 17 mg/dL (7-18); BUN/Creat Ratio 22.1 RATIO (10-20); Calcium,Total 9.3 mg/dL (8.5-10.1); Chloride 110 mmol/L (98-107); Creatinine, Serum 0.77 mg/dL (0.55-1.02); EST Glomerular Filtration Rate 92 mL/min (>60); Est Glom Filt Rate - Afr Amer 111 mL/min (>60); Estimated Creatinine Clearance 93.51 ml/min; Glucose 99 mg/dL (74-106); Potassium 3.4 mmol/L (3.5-5.1); Sodium Level 143 mmol/L (136-145)
--- NOTE | 2023-05-04 10:33 | NURSING ---
102 MED SURG SWEET POLYSUBSTANCE ABUSE, ALCOHOL DEPENDENCE
[2023-05-04 10:41] LABS: Alcohol, Blood (Medical)-Serum < 3.0 mg/dL
--- NOTE | 2023-05-04 10:42 | PCM.HP.STD ---
HPI - General General Date of Admission: 05/04/23 Date of Service: 05/04/23 Chief Complaint: Opioid detox HPI Narrative FAVIAN CURRY, is a 32 F with a history of polysubstance abuse and anxiety and depression as well as hepatitis C who presented to [facility] 05/04/2023 requesting detox. Hospitalist consulted for admission. Patient reports that she is used IV opiates off and on for the past 8 years and that she was recently in longterm for 90 days and got out on Monday however was still able to do heroin while in longterm. Last use with fentanyl 1 day ago. Also uses meth frequently and used meth shortly before coming to the hospital. Also reports binge drinking and will sometimes drink shots and then escalate to a pint of liquor every couple of days. Denies any history of withdrawal seizures or DTs from alcohol but does report when she used to use Xanax she had a withdrawal seizure, denies any current benzodiazepine use. Reports that she is feeling well achy all over and beginning to have some abdominal pain which she is attributing to withdrawal. Denies any ongoing medical problems at this time. [facility] Medical History Anxiety and depression Asthma Bipolar 1 disorder Hepatitis C History of substance abuse Hypertension Seasonal allergies Home Medications lisinopril 40 mg tablet 40 mg PO DAILY #90 tabs 08/13/19 [Rx Last Taken 05/03/23] hydroxyzine pamoate 50 mg capsule (Vistaril) 50 mg PO BID PRN itching 05/04/23 [History Last Taken 05/04/23] quetiapine 100 mg tablet (Seroquel) 100 mg PO DAILY . 05/04/23 [History Last Taken Unknown] spironolactone PO DAILY . 05/04/23 [History Last Taken Unknown] Allergy/AdvReac Type Severity Reaction Status Date / Time ketorolac tromethamine Allergy Hives Verified 05/04/23 08:29 [From Toradol] Sulfa (Sulfonamide Allergy Swelling Verified 05/04/23 08:29 Antibiotics) tramadol Allergy Itching Verified 05/04/23 08:29 acetaminophen [From Tylenol] AdvReac Other Verified 05/04/23 08:29 Family History Other Depression Hypertension Surgical History History of tubal ligation Social History Smoking Status: Current every day smoker tobacco type: cigarettes alcohol intake: never substance use type: former substance user Date of last use: 01/07/18 what type of physical activity do you participate in: none ROS ROS Narrative General: Feels achy HENT: Denies headache, denies stuffy nose, denies sore throat EYES: Denies changes in vision Resp: Denies cough, denies shortness of breath Cardiac: Denies chest pain GI: Beginning to have some abdominal pain, denies changes in bowel, denies nausea/vomiting : Denies changes in urination Extremity: Denies swelling MSK: Denies weakness Neuro: Denies any numbness/tingling Heme: Denies any bleeding or bruising Skin: Has pick martinez on face Psychiatric: Anxious about follow-up plan Vital Signs Vital Signs Vital Signs: 05/04/23 08:29 05/04/23 10:30 Temperature 97.8 F 98.1 F Temperature Source Temporal Oral Pulse Rate 98 79 Respiratory Rate 18 16 Blood Pressure 156/108 H 138/79 H Blood Pressure Mean 124 98 Pulse Ox 97 98 Oxygen Delivery Method Room Air Room Air Weight Weight: 87.09 kg Body Mass Index (BMI) 31.9 Physical Exam Narrative General: Alert, oriented, no apparent distress HEENT: Atraumatic, normocephalic Eyes: Anicteric, normal conjunctiva, extraocular movements grossly intact Neck: Supple Respiratory: Clear to auscultation bilaterally, normal respiratory effort Cardiovascular: Regular rate and rhythm GI: Soft, nontender, nondistended Extremities: No edema Musculoskeletal: Moving all extremities Neuro: No overt focal neurological deficits Skin: Pick martinez noted scattered Psych: Cooperative Results Lab / Micro Data 05/04/23 10:10 05/04/23 10:10 Labs: Laboratory Results - last 24 hr 05/04/23 09:54: Urine Test Negative, Urine Opiates Screen NEGATIVE, Urine Methadone Screen NEGATIVE, Ur Barbiturates Screen NEGATIVE, Ur Phencyclidine Scrn NEGATIVE, Ur Amphetamines Screen POSITIVE H, MDMA (Ecstasy) Screen POSITIVE H, U Benzodiazepines Scrn NEGATIVE, Urine Cocaine Screen NEGATIVE, U Cannabinoids Screen NEGATIVE, Ur Drug Screen Comment 05/04/23 10:10: WBC 6.8, RBC 4.50, Hgb 12.3, Hct 38.7, MCV 86.0, MCH 27.3, MCHC 31.8 L, RDW Std Deviation 45.1 H, RDW Coeff of Peri 14.5, Plt Count 226, MPV 11.4, Immature Gran % (Auto) 0.300, Neut % (Auto) 58.8, Lymph % (Auto) 29.2, Sully % (Auto) 8.8, Eos % (Auto) 2.6, Baso % (Auto) 0.3, Absolute Neuts (auto) 4.0, Absolute Lymphs (auto) 1.99, Nucleated RBC % 0, Sodium 143, Potassium 3.4 L, Chloride 110 H, Carbon Dioxide 24.0, Anion Gap 9, BUN 17, Creatinine 0.77, Estim Creat Clear Calc 93.51, Est GFR (MDRD) Af Amer 111, Est GFR (MDRD) Non-Af 92, BUN/Creatinine Ratio 22.1 H, Glucose 99, Calcium 9.3, Ethyl Alcohol < 3.0 Assessment & Plan Assessment/Plan (1) History of substance abuse: (2) IVDU (intravenous drug user): (3) Hypertension: (4) Anxiety and depression: (5) Hepatitis C: PLAN: Plan #Opiate use disorder with acute opiate withdrawal - Subutex taper initiated - As needed Tylenol, ibuprofen, bowel regimen, gabapentin, Bentyl, Vistaril, methocarbamol, clonidine - As needed trazodone nightly - As needed antiemetics -UDS positive for amphetamines and MDMA, alcohol with negative -Once patient begins to clinically improve will discuss further discharge planning #Amphetamine use disorder -Supportive care #Alcohol abuse -Denies any DTs or withdrawal seizures from alcohol, presently reports binge drinking, will monitor but do not think she needs phenobarb taper at this time #History of depression anxiety -Continue Seroquel -Hydroxyzine as needed #Hypertension -Continue lisinopril #Hepatitis C -Outpatient follow-up #Hypokalemia -Of 3.4, replace with 40 mill equivalents #DVT ppx: Low risk, ambulatory Mague Meredith MD Time spent in the patient's overall evaluation,decision-making process, review of diagnostic data, adjustment of management, discussion with other providers, nursing nursing and ancillary staff involved in patient's care documentation, 56 minutes Charges/Coding Visit Charges Inpatient E&M: 14681 Init Hosp L2
[2023-05-04 11:35] VITALS: BMI 30.4
[2023-05-04 11:43] VITALS: BP 144/129; PULSE 101; RESP 20; TEMP 36.3; O2SAT 100
[2023-05-04] MEDS: Potassium Chloride Oral Tablet 20 MEQ 40 MEQ PO (12:49)
[2023-05-04] MEDS: Gabapentin 300 MG Capsule PO ×2 (12:49→21:32)
[2023-05-04] MEDS: hydrOXYzine PAM 25 MG Capsule 50 MG PO ×2 (12:49→18:30)
[2023-05-04] MEDS: Ondansetron 8 MG Tablet PO (12:49)
[2023-05-04] MEDS: Buprenorphine HCl 2 MG TAB.SUBL SL ×2 (14:30→21:32)
[2023-05-04 17:01] VITALS: BP 143/113; PULSE 77; RESP 18; TEMP 36.3; O2SAT 97
[2023-05-04] MEDS: Dicyclomine 10 MG Capsule 20 MG PO (17:06)
[2023-05-04] MEDS: cloNIDine HCl 0.1 MG Tablet PO (18:30)
[2023-05-04] MEDS: Ondansetron ODT 4 MG Tablet PO (18:30)
[2023-05-04 20:30] VITALS: BP 116/98; PULSE 79; RESP 18; TEMP 36.8; O2SAT 96
[2023-05-04] MEDS: QUEtiapine 100 MG Tablet PO (20:32)
[2023-05-04] MEDS: traZODone 100 MG Tablet PO (20:33)
[2023-05-04 21:30] VITALS: BP 121/92; PULSE 87; RESP 16; TEMP 36.4; O2SAT 97
[2023-05-04] MEDS: Methocarbamol 750 MG Tablet 1500 MG PO (21:33)
[2023-05-05 01:30] VITALS: BP 115/87; PULSE 90; RESP 16; TEMP 36.4; O2SAT 98
[2023-05-05] MEDS: Buprenorphine HCl 2 MG TAB.SUBL SL ×3 (05:47→21:26)
[2023-05-05] MEDS: Gabapentin 300 MG Capsule PO ×2 (05:51→21:27)
[2023-05-05] MEDS: Lisinopril 40 MG Tablet PO (07:58)
--- NOTE | 2023-05-05 11:23 | PCM.PN.HOSP ---
Reason for Visit Reason for Visit: Diagnoses Unspecified viral hepatitis C without hepatic coma (05/04/23) Other psychoactive substance abuse, in remission (05/04/23) Other psychoactive substance use, unspecified, uncomplicated (05/04/23) Major depressive disorder, single episode, unspecified (05/04/23) Anxiety disorder, unspecified (05/04/23) Essential (primary) hypertension (05/04/23) Subjective Subjective Patient reports feeling oversedated and wants adjustments to her medications, also has been nauseated Objective Data Objective Data Vital Signs: Vital Signs Temp Pulse Resp BP Pulse Ox O2 Del Method 97.6 F L 90 16 115/87 H 98 Room Air 05/05/23 01:30 05/05/23 01:30 05/05/23 01:30 05/05/23 01:30 05/05/23 01:30 05/05/23 01:30 Oxygen Delivery Method Room Air Weight: 85.502 kg Body Mass Index (BMI) 30.4 Intake & Output: Intake and Output for Last 24 Hours 05/03/23 05/04/23 05/05/23 23:59 23:59 23:59 Intake Total 1300 / 1300 Output Total 0 / 0 Balance 1300 / 1300 Lab / Micro Data 05/04/23 10:10 05/04/23 10:10 Physical Exam Narrative General: Appears tired, also ran to bathroom because she thought she was going to get sick HEENT: Atraumatic, normocephalic Eyes: Anicteric, normal conjunctiva, extraocular movements grossly intact Neck: Supple Respiratory: Normal respiratory effort Cardiovascular: Regular rate GI: Nondistended Extremities: No edema Musculoskeletal: Moving all extremities Neuro: No overt focal neurological deficits Skin: Has pick martinez Psych: Cooperative Assessment & Plan Assessment/Plan (1) History of substance abuse: (2) IVDU (intravenous drug user): (3) Hypertension: (4) Anxiety and depression: (5) Hepatitis C: PLAN: Plan #Opiate use disorder with acute opiate withdrawal - Subutex taper initiated - As needed Tylenol, ibuprofen, bowel regimen, gabapentin, Bentyl, Vistaril, methocarbamol, clonidine - As needed trazodone nightly - As needed antiemetics -UDS positive for amphetamines and MDMA, alcohol with negative -Once patient begins to clinically improve will discuss further discharge planning -05/05: Patient will go to inpatient rehab on Monday #Amphetamine use disorder -Supportive care #Alcohol abuse -Denies any DTs or withdrawal seizures from alcohol, presently reports binge drinking, will monitor but do not think she needs phenobarb taper at this time -05/05: Do not think alcohol detox is necessary #History of depression anxiety -Continue Seroquel -Hydroxyzine as needed -05/05: Patient reports feeling very sedated, will adjust her medications to minimize sedation #Hypertension -Continue lisinopril #Hepatitis C -Outpatient follow-up #Hypokalemia -Of 3.4, replace with 40 mill equivalents #DVT ppx: Low risk, ambulatory Mague Meredith MD Charges/Coding Visit Charges Inpatient E&M: 20205 Subs Hosp L1
[2023-05-05 11:35] VITALS: PULSE 65; RESP 8; TEMP 36.6; O2SAT 98
--- NOTE | 2023-05-05 16:59 | NURSING ---
patient bladder scanned for 434 urine. Refuses to be straight cathed. Dr. alonzo.
[2023-05-05] MEDS: Ondansetron ODT 4 MG Tablet PO (18:12)
[2023-05-05 21:00] VITALS: BP 101/70; PULSE 70; RESP 16; TEMP 36.2; O2SAT 97
[2023-05-05] MEDS: Polyethylene Glycol 3350 17 GM PACKET PO (21:27)
[2023-05-06 03:00] VITALS: BP 113/70; PULSE 85; RESP 18; TEMP 35.9; O2SAT 98
[2023-05-06] MEDS: Gabapentin 300 MG Capsule PO ×2 (06:12→18:46)
[2023-05-06] MEDS: Buprenorphine HCl 2 MG TAB.SUBL SL ×2 (06:12→14:34)
[2023-05-06 09:45] VITALS: BP 100/57; PULSE 71; RESP 16; TEMP 36.9; O2SAT 98
[2023-05-06] MEDS: Polyethylene Glycol 3350 17 GM PACKET PO ×2 (09:48→21:06)
[2023-05-06] MEDS: Senna/Docusate Sodium 1 Tablet 2 TABLET PO ×2 (09:55→21:12)
[2023-05-06] MEDS: Acetaminophen 325 MG Tablet 650 MG PO (11:28)
--- NOTE | 2023-05-06 13:36 | PN.HOSP_ITS ---
Reason for Visit Reason for Visit: Diagnoses Unspecified viral hepatitis C without hepatic coma (05/04/23) Other psychoactive substance abuse, in remission (05/04/23) Other psychoactive substance use, unspecified, uncomplicated (05/04/23) Major depressive disorder, single episode, unspecified (05/04/23) Anxiety disorder, unspecified (05/04/23) Essential (primary) hypertension (05/04/23) Subjective Subjective Feels somewhat less sedated today, still tired but is able to sit up and stay awake, feels slightly better overall from yesterday. Yesterday evening patient was retaining urine but refused straight cath, medications adjusted and instr uctions to straight cath again in the evening were given Objective Data Objective Data Vital Signs: Vital Signs Temp Pulse Resp BP Pulse Ox O2 Del Method 98.5 F 71 16 100/57 L 98 Room Air 05/06/23 09:45 05/06/23 09:45 05/06/23 09:45 05/06/23 09:45 05/06/23 09:45 05/06/23 09:45 Oxygen Delivery Method Room Air Weight: 85.502 kg Body Mass Index (BMI) 30.4 Intake & Output: Intake and Output for Last 24 Hours 05/04/23 05/05/23 05/06/23 23:59 23:59 23:59 Intake Total 1300 / 1300 720 / 1220 980 / 980 Output Total 0 / 0 Balance 1300 / 1300 720 / 1220 980 / 980 Lab / Micro Data 05/04/23 10:10 05/04/23 10:10 Physical Exam Narrative General: Appears tired but less so than yesterday HEENT: Atraumatic, normocephalic Eyes: Anicteric, normal conjunctiva, extraocular movements grossly intact Neck: Supple Respiratory: Normal respiratory effort Cardiovascular: Regular rate GI: Nondistended Extremities: No edema Musculoskeletal: Moving all extremities Neuro: No overt focal neurological deficits Skin: Has pick martinez Psych: Cooperative Assessment & Plan Assessment/Plan (1) History of substance abuse: (2) IVDU (intravenous drug user): (3) Hypertension: (4) Anxiety and depression: (5) Hepatitis C: PLAN: Plan #Opiate use disorder with acute opiate withdrawal - Subutex taper initiated - As needed Tylenol, ibuprofen, bowel regimen, gabapentin, Bentyl, Vistaril, methocarbamol, clonidine - As needed trazodone nightly - As needed antiemetics -UDS positive for amphetamines and MDMA, alcohol with negative -Once patient begins to clinically improve will discuss further discharge planning -05/05: Patient will go to inpatient rehab on Monday -05/06: Patient less sedated with current medication changes #Urinary retention -Suspect this was from antispasmodics and anticholinergics and cannot rule out component of constipation -Medications adjusted -Patient had been retaining greater than 400 yesterday but refused straight cath, straight cath as needed and monitor voiding -We will obtain UA and will check BMP in the a.m. #Amphetamine use disorder -Supportive care #Alcohol abuse -Denies any DTs or withdrawal seizures from alcohol, presently reports binge drinking, will monitor but do not think she needs phenobarb taper at this time -05/05: Do not think alcohol detox is necessary #History of depression anxiety -Continue Seroquel -Hydroxyzine as needed -05/05: Patient reports feeling very sedated, will adjust her medications to minimize sedation -05/06: Improving with medication adjustments #Hypertension -Continue lisinopril -05/06: BP downtrending likely due to multiple medications for detox, holding lisinopril #Hepatitis C -Outpatient follow-up #Hypokalemia -Of 3.4, replace with 40 mill equivalents -05/06: We will have repeat BMP in the a.m. #DVT ppx: Low risk, ambulatory Mague Meredith MD Time spent in the patient's overall evaluation,decision-making process, review of diagnostic data, adjustment of management, discussion with other providers, nursing nursing and ancillary staff involved in patient's care documentation, 36 minutes Charges/Coding Visit Charges Inpatient E&M: 74590 Subs Hosp L2
[2023-05-06 16:10] VITALS: BP 106/59; PULSE 67; RESP 16; TEMP 36.9; O2SAT 99
[2023-05-06] MEDS: Methocarbamol 750 MG Tablet PO (18:46)
[2023-05-06 21:03] VITALS: BP 115/65; PULSE 62; RESP 18; TEMP 36.8; O2SAT 96
[2023-05-06] MEDS: QUEtiapine 25 MG Tablet PO (21:08)
[2023-05-07 03:20] VITALS: BP 124/109; PULSE 58; RESP 18; TEMP 36.8; O2SAT 98
[2023-05-07] MEDS: Buprenorphine HCl 2 MG TAB.SUBL SL (03:27)
[2023-05-07] MEDS: Gabapentin 300 MG Capsule PO ×3 (03:33→23:55)
[2023-05-07] MEDS: Methocarbamol 750 MG Tablet PO ×2 (03:33→18:46)
[2023-05-07] MEDS: Acetaminophen 325 MG Tablet 650 MG PO ×2 (03:33→18:46)
--- NOTE | 2023-05-07 05:18 | NURSING ---
pt refusing lab draws. Education provided about importance of monitoring labs in pt's care. No further concerns at this time.
[2023-05-07 05:37] LABS: Mucous, Urine 0 SEEN /hpf (<or=2+); Red Blood Cells-Urine 0 SEEN /hpf (0-5)
[2023-05-07 05:39] LABS: Color, Urine Yellow (Yellow); Glucose, Dipstick Normal (Normal); Ketone-Dipstick Negative (Negative); Leukocyte Esterase-Dipstick 25 /ul (Negative); Nitrite-Dipstick Negative (Negative); Occult Blood-Urine Negative /ul (Negative); Protein-Dipstick 15 mg/dl (Negative); Urine Bilirubin Dipstick Negative (Negative); Urine Clarity Clear (Clear); Urine Urobilinogen Normal (Normal); Urine pH 6.5 (5.0 - 8.0)
[2023-05-07 06:12] LABS: Bacteria 1+ /hpf (None Seen); Squamous Epithelial Cells - UA 0-5 SEEN /hpf (5-10); White Blood Cells 0-5 SEEN /hpf (0-5)
[2023-05-07 09:13] LABS: Anion Gap 3 (5-15); BUN 12 mg/dL (7-18); BUN/Creat Ratio 19.7 RATIO (10-20); Calcium,Total 8.8 mg/dL (8.5-10.1); Chloride 106 mmol/L (98-107); Creatinine, Serum 0.61 mg/dL (0.55-1.02); EST Glomerular Filtration Rate 120 mL/min (>60); Est Glom Filt Rate - Afr Amer 145 mL/min (>60); Glucose 82 mg/dL (74-106); Potassium 4.6 mmol/L (3.5-5.1); Sodium Level 137 mmol/L (136-145)
[2023-05-07 09:56] VITALS: BP 122/82; PULSE 68; RESP 18; TEMP 36.8; O2SAT 99
[2023-05-07 10:00] VITALS: O2SAT 99
--- NOTE | 2023-05-07 13:24 | PCM.PN.HOSP ---
Reason for Visit Reason for Visit: Diagnoses Unspecified viral hepatitis C without hepatic coma (05/04/23) Other psychoactive substance abuse, in remission (05/04/23) Other psychoactive substance use, unspecified, uncomplicated (05/04/23) Major depressive disorder, single episode, unspecified (05/04/23) Anxiety disorder, unspecified (05/04/23) Essential (primary) hypertension (05/04/23) Subjective Subjective Concerned she has trichomonas as her boyfriend was diagnosed and treated for it. Also reports feeling tired Objective Data Objective Data Vital Signs: Vital Signs Temp Pulse Resp BP Pulse Ox O2 Del Method 98.2 F 68 18 122/82 H 99 Room Air 05/07/23 09:56 05/07/23 09:56 05/07/23 09:56 05/07/23 09:56 05/07/23 10:00 05/07/23 10:00 Oxygen Delivery Method Room Air Weight: 85.502 kg Body Mass Index (BMI) 30.4 Intake & Output: Intake and Output for Last 24 Hours 05/05/23 05/06/23 05/07/23 23:59 23:59 23:59 Intake Total 720 / 1220 1460 / 1460 Balance 720 / 1220 1460 / 1460 Lab / Micro Data 05/04/23 10:10 05/07/23 08:29 Labs: Laboratory Results - last 24 hr 05/06/23 16:30: Urine Color Yellow, Urine Clarity Clear, Urine pH 6.5, Ur Specific [place] 1.010, Urine Protein 15 H, Urine Glucose (UA) Normal, Urine Ketones Negative, Urine Occult Blood Negative, Urine Nitrite Negative, Urine Bilirubin Negative, Urine Urobilinogen Normal, Ur Leukocyte Esterase 25 H, Urine RBC 0 SEEN, Urine WBC 0-5 SEEN, Ur Squamous Epith Cells 0-5 SEEN, Urine Bacteria 1+, Urine Mucus 0 SEEN 05/07/23 08:29: Sodium 137, Potassium 4.6, Chloride 106, Carbon Dioxide 28.0, Anion Gap 3 L, BUN 12, Creatinine 0.61, Estim Creat Clear Calc 122.80, Est GFR (MDRD) Af Amer 145, Est GFR (MDRD) Non-Af 120, BUN/Creatinine Ratio 19.7, Glucose 82, Calcium 8.8 Physical Exam Narrative General: Grogginess improving HEENT: Atraumatic, normocephalic Eyes: Anicteric, normal conjunctiva, extraocular movements grossly intact Neck: Supple Respiratory: Normal respiratory effort Cardiovascular: Regular rate GI: Nondistended Extremities: No edema Musculoskeletal: Moving all extremities Neuro: No overt focal neurological deficits Skin: Has pick martinez Psych: Cooperative Assessment & Plan Assessment/Plan (1) History of substance abuse: (2) IVDU (intravenous drug user): (3) Hypertension: (4) Anxiety and depression: (5) Hepatitis C: PLAN: Plan #Opiate use disorder with acute opiate withdrawal - Subutex taper initiated - As needed Tylenol, ibuprofen, bowel regimen, gabapentin, Bentyl, Vistaril, methocarbamol, clonidine - As needed trazodone nightly - As needed antiemetics -UDS positive for amphetamines and MDMA, alcohol with negative -Once patient begins to clinically improve will discuss further discharge planning -05/05: Patient will go to inpatient rehab on Monday -05/06: Patient less sedated with current medication changes -05/07: Detox will be completed today, inpatient rehab tomorrow #Urinary retention -Suspect this was from antispasmodics and anticholinergics and cannot rule out component of constipation -Medications adjusted -Patient had been retaining greater than 400 yesterday but refused straight cath, straight cath as needed and monitor voiding -We will obtain UA and will check BMP in the a.m. -05/07: UA unremarkable and BMP without kidney dysfunction, continue supportive care bladder scan as needed #Presumed trichomonas infection -Patient reports her boyfriend had confirmed trichomonas infection and treatment, given her sexual partner exposure and likelihood of infection we will treat patient with 2 g of metronidazole x1. Will be important on discharge that she is advised to test for infection again in 3 months and that she needs to refrain from sexual activity with that partner if they did not complete treatment #Amphetamine use disorder -Supportive care #Alcohol abuse -Denies any DTs or withdrawal seizures from alcohol, presently reports binge drinking, will monitor but do not think she needs phenobarb taper at this time -05/05: Do not think alcohol detox is necessary -05/07: Patient has not drank since before admission, will give metronidazole for trichomonas as above. No drinking for 3 days but patient is going to snf house #History of depression anxiety -Continue Seroquel -Hydroxyzine as needed -05/05: Patient reports feeling very sedated, will adjust her medications to minimize sedation -05/06: Improving with medication adjustments #Hypertension -Continue lisinopril -05/06: BP downtrending likely due to multiple medications for detox, holding lisinopril -05/07: Blood pressure more into midrange as taper continues, may need lisinopril restarted as outpatient or before discharge pending blood pressure #Hepatitis C -Outpatient follow-up #Hypokalemia -Of 3.4, replace with 40 mill equivalents -05/06: We will have repeat BMP in the a.m. -05/07: Hypokalemia resolved #DVT ppx: Low risk, ambulatory Mague Meredith MD Time spent in the patient's overall evaluation,decision-making process, review of diagnostic data, adjustment of management, discussion with other providers, nursing nursing and ancillary staff involved in patient's care documentation, 36 minutes Charges/Coding Visit Charges Inpatient E&M: 91948 Subs Hosp L2
[2023-05-07] MEDS: metroNIDAZOLE 500 MG Tablet 2000 MG PO (13:58)
[2023-05-07 15:55] VITALS: BP 105/60; PULSE 71; RESP 16; TEMP 36.6; O2SAT 99
--- NOTE | 2023-05-07 16:24 | NURSING ---
Patient asked RN to call her Mom, Karissa and give her an update and tell her that she will be discharging tomorrow to inpatient rehab with 180. Patient gives permission for RN to call her Mom tomorrow and let her know when patient will be discharging. Her number is [phone].
[2023-05-07] MEDS: Bisacodyl 5 MG Tablet 10 MG PO (18:46)
[2023-05-07] MEDS: Ondansetron ODT 4 MG Tablet PO (19:47)
[2023-05-07 21:02] VITALS: BP 148/108; PULSE 67; RESP 18; TEMP 36.6; O2SAT 99
[2023-05-07] MEDS: QUEtiapine 25 MG Tablet PO (22:28)
[2023-05-07 23:53] VITALS: BP 129/84; PULSE 74; RESP 18; TEMP 36.6; O2SAT 97
[2023-05-08] MEDS: Ondansetron ODT 4 MG Tablet PO (02:29)
[2023-05-08 04:04] VITALS: BP 127/84; PULSE 72; RESP 18; TEMP 36.5; O2SAT 98
[2023-05-08] MEDS: Acetaminophen 325 MG Tablet 650 MG PO (06:52)
--- NOTE | 2023-05-08 08:45 | PCM.DC.SUM ---
Providers Date of Admission: 05/04/23 Date of Discharge: 05/08/23 Primary Care Physician: Dr. Acacia Campos MD Reason For Visit: OPIOID DETOX Diagnosis Discharge Diagnosis (1) History of substance abuse: Status: Chronic Code(s): F19.11 - Other psychoactive substance abuse, in remission (2) IVDU (intravenous drug user): Status: Chronic Code(s): F19.90 - Other psychoactive substance use, unspecified, uncomplicated (3) Hypertension: Status: Chronic Code(s): I10 - Essential (primary) hypertension (4) Anxiety and depression: Status: Chronic Code(s): F41.9 - Anxiety disorder, unspecified; F32.9 - Major depressive disorder, single episode, unspecified (5) Hepatitis C: Status: Chronic Code(s): B19.20 - Unspecified viral hepatitis C without hepatic coma Medications at Discharge Home Medications lisinopril 40 mg tablet 40 mg PO DAILY #90 tabs 08/13/19 amlodipine 10 mg tablet 10 mg PO DAILY HTN 05/04/23 hydroxyzine pamoate 50 mg capsule (Vistaril) 50 mg PO BID PRN itching 05/04/23 quetiapine 100 mg tablet (Seroquel) 100 mg PO DAILY . 05/04/23 spironolactone PO DAILY PRN HTN 05/04/23 Hospital Course Summary of Care Provided Minutes Spent on Discharge: 35 Hospital Course: Patient is a 32-year-old lady with history of polysubstance abuse admitted with acute opioid withdrawal 1. Acute opiate withdrawal ? Admitted to regular nursing floor managed with Subutex taper 2. Polysubstance abuse ? Patient urine drug screen was positive for amphetamines MDMA. Patient was counseled on cessation 3. Suspected trichomonas infection ? Treated with metronidazole 4. Depression with anxiety ? Patient was on Seroquel and hydroxyzine as needed continue 5. Hypertension - Blood pressure controlled, home medications continued with dose adjustment as needed 6. Chronic hep C ? Patient to follow-up with primary care physician for subsequent care 7. Hypokalemia -Corrected per protocol 8. DVT prophylaxis ? Low risk did encourage ambulation Physical Exam Narrative GENERAL: cooperative HEENT: Atraumatic; normocephalic EYES; Anicteric, Normal Conjunctiva NECK; supple, normal thyroid, RESPIRATORY: Diminished to auscultation CARDIOVASCULAR: Regular S1 S2, GI: soft, normoactive bowel sounds, : No Renal angle tenderness; EXTREMITIES: No edema, no clubbing, MUSCULOSKELETAL: no muscle wasting NEURO: Awake; no lateralizing signs. SKIN: No Rash PSYCH; Flat affect Weight / BMI Weight Weight: 85.502 kg Body Mass Index (BMI) 30.4 ABG / Lab / Microbiology Data 05/04/23 10:10 05/07/23 08:29 Laboratory: Laboratory Results - last 24 hr 05/07/23 08:29: Sodium 137, Potassium 4.6, Chloride 106, Carbon Dioxide 28.0, Anion Gap 3 L, BUN 12, Creatinine 0.61, Estim Creat Clear Calc 122.80, Est GFR (MDRD) Af Amer 145, Est GFR (MDRD) Non-Af 120, BUN/Creatinine Ratio 19.7, Glucose 82, Calcium 8.8 D/C Instructions Discharge Diet: No restrictions Discharge Activity: Return to Normal Activity Call your doctor if you observe: Fever of 101 or Higher, Shortness of breath, Fainting spells and Chest pain Meaningful Use Info Meaningful Use Diagnoses (Choose all that apply): None applicable Discharge Plan Admission Admit Date/Time: 05/04/23 10:43 Attending Provider: Jhoan Nickerson Primary Care Provider: Acacia Campos Consulting Providers: Mague Meredith Discharge Orders/Prescriptions Prescriptions: Continued lisinopril 40 mg tablet 40 mg PO DAILY Qty: 90 1RF quetiapine [Seroquel] 100 mg tablet 100 mg PO DAILY hydroxyzine pamoate [Vistaril] 50 mg capsule 50 mg PO BID PRN (Reason: itching) spironolactone PO DAILY PRN (Reason: HTN) Patient Comments: PT UNSURE OF STRENGTH amlodipine 10 mg tablet 10 mg PO DAILY Patient Comments: TAKE 1 TABLET BY MOUTH EVERY DAY Referrals / Follow Up: Acacia Campos MD [Primary Care Provider] - Within 2 Weeks Disposition Disposition (needs filled in before D/C Order can be placed): Home, Self Care Charges/Coding Visit Charges Inpatient E&M: 01895 Disch Hosp >30min
[2023-05-08 10:00] VITALS: O2SAT 99
[2023-05-08 10:39] VITALS: BP 118/86; PULSE 67; RESP 18; TEMP 36.7; O2SAT 98
[2023-05-08 10:53] VITALS: BP 118/86; PULSE 67; RESP 18; TEMP 36.7; O2SAT 98
--- NOTE | 2023-05-08 11:12 | PHA.DC.MR.R ---
Pharmacy [place] Med Reconciliation Pharmacy Service has performed discharge medication reconciliation for this patient. The patient's discharge medication list was reviewed for discrepancies and discrepancies were resolved. Medications at Discharge Home Medications lisinopril 40 mg tablet 40 mg PO DAILY #90 tabs 08/13/19 amlodipine 10 mg tablet 10 mg PO DAILY HTN 05/04/23 hydroxyzine pamoate 50 mg capsule (Vistaril) 50 mg PO BID PRN itching 05/04/23 quetiapine 100 mg tablet (Seroquel) 100 mg PO DAILY . 05/04/23 spironolactone PO DAILY PRN HTN 05/04/23
--- NOTE | 2023-05-08 11:22 | NURSING ---
patient discharged per orders to rehab program.
== END 2023-05-08 11:18 | disposition home or self-care (01) | DRG 772 ==
LOC: ED 09:33 → PCU 11:02
PROVIDERS: Admitting Provider Internal Medicine; Emergency Provider Emergency Medicine; PCP Internal Medicine; Visit Provider Internal Medicine
DX: F11.23 Opioid dependence with withdrawal (principal); F31.9 Bipolar disorder, unspecified; A59.9 Trichomoniasis, unspecified; B18.2 Chronic viral hepatitis C; F10.10 Alcohol abuse, uncomplicated; E87.6 Hypokalemia; F15.10 Other stimulant abuse, uncomplicated; F16.10 Hallucinogen abuse, uncomplicated; I10 Essential (primary) hypertension; F41.9 Anxiety disorder, unspecified; F17.210 Nicotine dependence, cigarettes, uncomplicated; R33.0 Drug induced retention of urine; T44.3X5A Adverse effect of other parasympatholytics [anticholinergics and antimuscarinics] and spasmolytics, initial encounter; Z79.899 Other long term (current) drug therapy
CPT/HCPCS: 36415; 80048; 80307; 81001; 81025; 82077; 85025; 99283

== ENCOUNTER 2023-05-23 18:45 | Emergency (ER) | payer MEDICAID, SELFPAY ==
[2023-05-23 18:45] VITALS: BP 129/96; PULSE 102; RESP 18; TEMP 36.6; O2SAT 100; BMI 32.1
--- NOTE | 2023-05-23 19:40 | CT_ITS ---
STUDY: CT ABDOMEN AND PELVIS WITHOUT CONTRAST REASON FOR EXAM: Female, 32 years old. Pelvic pain RADIATION DOSAGE (If Supplied By Facility): CTDIvol = ( 14.02 ) mGy, DLP = ( 718.21 ) mGycm TECHNIQUE: Transaxial images were obtained from the dome of the diaphragm to the symphysis pubis without oral contrast, and without intravenous contrast. Sagittal and coronal images were reconstructed. Individualized dose optimization techniques were used for this CT. COMPARISON: None. FINDINGS: The visualized lung bases are unremarkable. The visualized portions of the heart are within normal limits. Normal liver. Contracted thick-walled gallbladder without calcified stones likely physiologic. Normal spleen. Normal pancreas. Normal bilateral adrenal glands. Normal right kidney. Normal left kidney. Normal visualized stomach. Normal small intestine. Diffuse fecal retention noted within the colon. The appendix is visualized and appears normal. Normal abdominal aorta. Normal inferior vena cava. Normal retroperitoneum. Uterus is deviated towards the left compressing the dome of the bladder which is incompletely distended. Mild cystic changes within the left ovary. Normal abdominal wall. Normal osseous structures. CT/Abdomen/Pelvis without Cont IMPRESSION: Minor cystic change within left ovary which may be further assessed with pelvic sonogram if indicated clinically.. No acute abnormalities identified. Electronically Signed: Modesto Corona MD at 21:57 EDT ,
[2023-05-23 20:44] LABS: Mucous, Urine 0 SEEN /hpf (<or=2+); Red Blood Cells-Urine 0 SEEN /hpf (0-5); White Blood Cells 0 SEEN /hpf (0-5)
[2023-05-23 20:47] LABS: Absolute Lymphocyte Count 2.24 X10^3/uL (0.83-4.51); Absolute Neutrophil Count 4.4 X10^3/uL (2.0-7.7); Basophil# 0.03 X10^3/uL; Basophil% 0.4 % (0-1); Eosinophil# 0.31 X10^3/uL; Eosinophils% 4.1 % (0-5); Hematocrit 39.3 % (37-47); Hemoglobin 12.7 g/dL (12.0-15.0); Lymphocyte # 2.24 X10^3/ul (0.83-4.51); Lymphocyte % 29.8 % (19-41); Mean Corp Hgb Conc 32.3 g/dL (32-36); Mean Corpuscular Hgb 27.5 pg (27.0-32.0); Mean Corpuscular Volume 85.1 fL (81-99); Mean Platelet Vol. 11.8 fl (6.2-12.0); Monocyte# 0.52 X10^3/uL; Monocyte% 6.9 % (0-10); NRBC Flagged by Analyzer 0 % (0-5); Neutrophil # 4.39 X10^3/uL (2.7-7.7); Neutrophil % 58.4 % (47-70); Platelet Count 261 K/mm3 (150-450); RBC Distribution Width CV 15.1 % (11.6-14.6); RBC Distribution Width SD 46.4 fl (35.1-43.9); Red Blood Count 4.62 M/mm3 (4.2-5.4); White Blood Count 7.5 K/mm3 (4.4-11.0)
[2023-05-23 20:50] LABS: Color, Urine Yellow (Yellow); Glucose, Dipstick Normal (Normal); Ketone-Dipstick Negative (Negative); Leukocyte Esterase-Dipstick 25 /ul (Negative); Nitrite-Dipstick Negative (Negative); Occult Blood-Urine Negative /ul (Negative); Protein-Dipstick Negative (Negative); Urine Bilirubin Dipstick Negative (Negative); Urine Clarity Clear (Clear); Urine Urobilinogen Normal (Normal)
[2023-05-23 20:55] LABS: Internal QC Validated? YES +Cl - CLEAR BKGD; Pregnancy, Serum, hCG Quali. NEGATIVE Negative
[2023-05-23 21:00] LABS: Bacteria RARE /hpf (None Seen); Squamous Epithelial Cells - UA 0-5 SEEN /hpf (5-10)
[2023-05-23 21:05] LABS: Anion Gap 3 (5-15); BUN 11 mg/dL (7-18); Calcium,Total 9.3 mg/dL (8.5-10.1); Chloride 106 mmol/L (98-107); Creatinine, Serum 0.69 mg/dL (0.55-1.02); EST Glomerular Filtration Rate 104 mL/min (>60); Est Glom Filt Rate - Afr Amer 126 mL/min (>60); Estimated Creatinine Clearance 108.56 ml/min; Glucose 96 mg/dL (74-106); Potassium 4.2 mmol/L (3.5-5.1); Sodium Level 130 mmol/L (136-145)
--- NOTE | 2023-05-23 21:37 | EDS_ITS ---
HPI HPI - GI History of Present Illness Chief Complaint: Abd Pain Informant: patient Abdominal Pain/Flank Pain Onset: Today Context: Gradual Onset Timing: Continuous Quality: Sharp Location: LLQ Worsened by: Nothing Relieved by: Nothing Nausea/Vomiting/Emesis GI Symptom: Positive for Nausea and Vomiting Quality: Positive for Nonbilious; Negative for Blood streaks, Coffee ground or Hematemesis Diarrhea/Melena/Hematochezia GI Symptom: Negative for Diarrhea, Melena or Hematochezia Associated Symptoms Associated Symptoms: Negative for Dysuria, Frequency or Hematuria Narrative Narrative: Patient presents with abdominal pain that began today. Patient states it came on gradually. Patient describes the pain as sharp. Patient states pain is over the left lower abdomen. Patient states nothing makes it better nothing makes it worse. Patient admits to an episode of nausea and vomiting. Patient denies any hematemesis or coffee-ground emesis. Patient denies any diarrhea, melena, or hematochezia. Patient states her last menstrual period was 2 days ago. Patient states she stopped having vaginal bleeding today and then her pain came on. PFSH PFS Medical History Anxiety and depression Asthma Bipolar 1 disorder Hepatitis C History of substance abuse Hypertension Seasonal allergies Home Medications lisinopril 40 mg tablet 40 mg PO DAILY #90 tabs 08/13/19 [Rx Last Taken 05/03/23] amlodipine 10 mg tablet 10 mg PO DAILY HTN 05/04/23 [History Last Taken Unknown] hydroxyzine pamoate 50 mg capsule (Vistaril) 50 mg PO BID PRN itching 05/04/23 [History Last Taken 05/04/23] quetiapine 100 mg tablet (Seroquel) 100 mg PO DAILY . 05/04/23 [History Last Taken Unknown] spironolactone PO DAILY PRN HTN 05/04/23 [History Last Taken 04/28/23] Allergy/AdvReac Type Severity Reaction Status Date / Time ketorolac tromethamine Allergy Hives Verified 05/23/23 18:45 [From Toradol] Sulfa (Sulfonamide Allergy Swelling Verified 05/23/23 18:45 Antibiotics) tramadol Allergy Itching Verified 05/23/23 18:45 acetaminophen [From Tylenol] AdvReac Other Verified 05/23/23 18:45 Family History Other Depression Hypertension Surgical History History of tubal ligation Social History Smoking Status: Current every day smoker tobacco type: cigarettes alcohol intake: never substance use type: former substance user Date of last use: 01/07/18 what type of physical activity do you participate in: none ROS ROS ED Constitutional Constitutional ED: Denies chills or fever(s) Eyes Eyes: Denies blurry vision or change in vision ENT ENT ED: Denies rhinorrhea or sore throat Cardiovascular Cardiovascular: Denies chest pain or palpitations Respiratory/Chest Respiratory/Chest: Denies cough or dyspnea Gastrointestinal Gastrointestinal: Reports abdominal pain, nausea and vomiting Genitourinary Genitourinary ED: Denies dysuria or hematuria Musculoskeletal Musculoskeletal: Reports back pain; Denies neck pain Integumentary Denies abscess or rash Neurologic Neurologic: Denies headache(s) or weakness Allergic/Immunologic Allergic/Immunologic ED: Denies mouth swelling or urticaria EXAM Physical Exam Const Vital Signs: 05/23/23 18:45 Temperature 97.8 F Temperature Source Temporal Pulse Rate 102 H Respiratory Rate 18 Blood Pressure 129/96 H Blood Pressure Mean 107 Pulse Ox 100 Oxygen Delivery Method Room Air Positive well nourished and well developed General Appearance ED: well developed HEENT Reports moist mucous membranes Neck supple and no JVD Resp normal respiratory effort and clear to auscultation bilaterally Cardio regular rate, regular rhythm and no murmurs GI normal to inspection, nondistended, normoactive bowel sounds Palpation: soft and tender LLQ; Negative for guarding or rebound tenderness present Extremity normal to inspection General Extremety ED: Negative for edema or tenderness General Extremity: Negative for edema Neuro oriented x3, CN's II-XII intact bilaterally, moves all extremities and no sensory deficits noted Sensorium / Orientation: alert Motor Exam: strength 5/5 throughout Psych mental status grossly normal Skin no rashes or lesions noted MDM MDM MDM Narrative Medical decision making narrative: Parental diagnosis includes ovarian cyst, ovarian torsion, ectopic , diverticulitis, colitis, urinary tract infection, ureteral calculus, and pyelonephritis. CBC will be obtained to assess for leukocytosis and anemia. Basic metabolic profile will be obtained to assess for electrolyte abnormality and renal function. Serum hCG will be obtained to assess for . Urinalysis will be obtained to assess for urinary tract infection and hematuria. CT scan of the abdomen and pelvis will be obtained to assess for ovarian cyst, pyelonephritis, and ureteral calculus. Lab Data Attestation: I reviewed the patient's lab results. Lab results narrative: CBC was reviewed and was within normal limits. Basic metabolic profile was reviewed. There is a mild hyponatremia of 130. Anion gap was normal. Serum hCG was reviewed and was negative. Urinalysis was reviewed. There is no evidence of urinary tract infection or hematuria. Labs: Laboratory Results - last 24 hr 05/23/23 05/23/23 05/23/23 20:20 20:25 20:35 WBC 7.5 RBC 4.62 Hgb 12.7 Hct 39.3 MCV 85.1 MCH 27.5 MCHC 32.3 RDW Std Deviation 46.4 H RDW Coeff of Peri 15.1 H Plt Count 261 MPV 11.8 Immature Gran % (Auto) 0.400 Neut % (Auto) 58.4 Lymph % (Auto) 29.8 Stevens % (Auto) 6.9 Eos % (Auto) 4.1 Baso % (Auto) 0.4 Absolute Neuts (auto) 4.4 Absolute Lymphs (auto) 2.24 Nucleated RBC % 0 Sodium 130 L Potassium 4.2 Chloride 106 Carbon Dioxide 21.0 Anion Gap 3 L BUN 11 Creatinine 0.69 Estim Creat Clear Calc 108.56 Est GFR (MDRD) Af Amer 126 Est GFR (MDRD) Non-Af 104 BUN/Creatinine Ratio 16.0 Glucose 96 Calcium 9.3 Serum , Qual NEGATIVE Urine Color Yellow Urine Clarity Clear Urine pH 6.0 Ur Specific Maxwell 1.010 Urine Protein Negative Urine Glucose (UA) Normal Urine Ketones Negative Urine Occult Blood Negative Urine Nitrite Negative Urine Bilirubin Negative Urine Urobilinogen Normal Ur Leukocyte Esterase 25 H Urine RBC 0 SEEN Urine WBC 0 SEEN Ur Squamous Epith Cells 0-5 SEEN Urine Bacteria RARE Urine Mucus 0 SEEN Radiography Diagnostic Testing: Clinical Impression(s) from Imaging Studies Abdomen/Pelvis CT 05/23/23 19:40 IMPRESSION: Minor cystic change within left ovary which may be further assessed with pelvic sonogram if indicated clinically.. No acute abnormalities identified. Electronically Signed: Modesto Corona MD at 21:57 EDT , T scan of the abdomen pelvis was obtained. There is a small cystic change in the left ovary. There is no acute abnormality noted. This was interpreted by the radiologist and was also independently reviewed by myself. Treatment and Re-Evaluation :: Patient is feeling better on reevaluation. Patient was advised of her findings. Patient was instructed to take Tylenol or ibuprofen as needed for pain. Patient was instructed to follow-up with her primary care physician in 5 to 7 days. Patient understood and was agreeable with the plan. All questions were answered. Discharge Plan Triage Chief Complaint: Abd Pain ED Provider: Christiano Swenson Dx/Rx/DC Orders Clinical Impression: Cyst of left ovary Instructions: ED Ovarian Cyst Prescriptions: No Action lisinopril 40 mg tablet 40 mg PO DAILY Qty: 90 1RF quetiapine [Seroquel] 100 mg tablet 100 mg PO DAILY hydroxyzine pamoate [Vistaril] 50 mg capsule 50 mg PO BID PRN (Reason: itching) spironolactone PO DAILY PRN (Reason: HTN) Patient Comments: PT UNSURE OF STRENGTH amlodipine 10 mg tablet 10 mg PO DAILY Patient Comments: TAKE 1 TABLET BY MOUTH EVERY DAY Primary Care Provider: Acacia Campos Referrals: Acacia Campos MD [Primary Care Provider] - 5-7 Days Disposition Disposition: Home, Self Care
== END 2023-05-23 22:18 | disposition home or self-care (01) ==
PROVIDERS: Emergency Provider Emergency Medicine; PCP Internal Medicine; Visit Provider Emergency Medicine
DX: N83.202 Unspecified ovarian cyst, left side (principal); R11.2 Nausea with vomiting, unspecified; I10 Essential (primary) hypertension
CPT/HCPCS: 74176; 80048; 81001; 84703; 85025; 99284; A4216

== ENCOUNTER → 2023-07-06 | Outpatient (CLI) | payer MEDICAID, SELFPAY ==
[2023-07-07 20:07] LABS: HCV Quant. RNA PCR 215000 IU/mL (.); HCV log 10 5.332 (.)
== END | disposition home or self-care (01) ==
LOC: LAB 11:04
PROVIDERS: PCP Internal Medicine; Visit Provider Family Medicine
DX: B18.2 Chronic viral hepatitis C (principal)
CPT/HCPCS: 36415; 87522

== ENCOUNTER 2023-08-08 22:43 | Emergency (ER) | payer MEDICAID, SELFPAY ==
[2023-08-08 22:43] VITALS: BP 132/86; PULSE 101; RESP 16; TEMP 37; O2SAT 100; BMI 34.7
--- NOTE | 2023-08-08 23:01 | EDS_ITS ---
HPI History of Present Illness Chief Complaint: Abd Pain Informant: patient Narrative Narrative: 32-year-old female coming to the emergency department chief complaint of right- sided abdominal pain. Patient states that 1 month ago she started medication for hepatitis C (Mavyret). She states for the past week she is felt slow bloating. She ate dinner around 1800 hrs. (mozzarella sticks) and took a nap. When she woke she states that her abdomen is twice the normal size. She notes pain in the right upper quadrant right side of the abdomen. She denies any nausea vomiting. She notes normal bowel movements. She notes a history of bilateral tubal ligation otherwise no prior abdominal surgeries. No history of pancreatitis. She denies any urinary symptoms. She denies chest pain or shortness of breath. No rashes. Patient is in recovery and has been doing well over the past 3 months. [facility] Medical History Anxiety and depression Asthma Bipolar 1 disorder Hepatitis C History of substance abuse Hypertension Seasonal allergies Home Medications lisinopril 40 mg tablet 40 mg PO DAILY #90 tabs 08/13/19 [Rx Last Taken 05/03/23] amlodipine 10 mg tablet 10 mg PO DAILY HTN 05/04/23 [History Last Taken Unknown] hydroxyzine pamoate 50 mg capsule (Vistaril) 50 mg PO BID PRN itching 05/04/23 [History Last Taken 05/04/23] spironolactone PO DAILY PRN HTN 05/04/23 [History Last Taken 04/28/23] glecaprevir 100 mg-pibrentasvir 40 mg tablet (Mavyret) 3 tab PO DAILY 08/08/23 [History Last Taken Unknown] lurasidone 20 mg tablet 20 mg PO BID 08/08/23 [History Last Taken 08/08/23] metronidazole 500 mg tablet 500 mg 08/08/23 [History Last Taken Unknown] risperidone 1 mg tablet 1 mg PO BID 08/08/23 [History Last Taken Unknown] Allergy/AdvReac Type Severity Reaction Status Date / Time ketorolac tromethamine Allergy Hives Verified 08/08/23 22:43 [From Toradol] Sulfa (Sulfonamide Allergy Swelling Verified 08/08/23 22:43 Antibiotics) tramadol Allergy Itching Verified 08/08/23 22:43 acetaminophen [From Tylenol] AdvReac Other Verified 08/08/23 22:43 Family History Other Depression Hypertension Surgical History History of tubal ligation Social History Smoking Status: Current every day smoker tobacco type: cigarettes alcohol intake: never substance use type: former substance user Date of last use: 01/07/18 what type of physical activity do you participate in: none ROS ROS ED Constitutional Constitutional ED: Denies chills, fever(s) or weight loss Eyes Eyes: Denies change in vision or diplopia ENT ENT ED: Denies ear pain, rhinorrhea or sore throat Cardiovascular Cardiovascular: Denies chest pain, orthopnea, palpitations or racing heartbeat Respiratory/Chest Respiratory/Chest: Denies cough, dyspnea or orthopnea Gastrointestinal Gastrointestinal: Reports abdominal pain and other Details: bloating ; Denies diarrhea, nausea or vomiting Genitourinary Genitourinary ED: Denies dysuria, hematuria or urinary frequency Musculoskeletal Musculoskeletal: Denies arthralgias or myalgias Integumentary Denies abscess or rash Neurologic Neurologic: Denies headache(s) or weakness Psychiatric Psychiatric: Denies anxiety, depression, suicidal ideation or suicidal thoughts Endocrine Endocrinology: Denies polydipsia, polyphagia or polyuria Allergic/Immunologic Allergic/Immunologic ED: Denies mouth swelling, tongue swelling or urticaria EXAM Physical Exam Const Vital Signs: 08/08/23 22:43 Temperature 98.6 F Temperature Source Temporal Pulse Rate 101 H Respiratory Rate 16 Blood Pressure 132/86 H Blood Pressure Mean 101 Pulse Ox 100 Positive well nourished, well developed and obese General Appearance ED: well developed Nutritional Appearance: obese HEENT Reports normocephalic, head/scalp atraumatic and moist mucous membranes Eyes PERRL and EOMs intact bilaterally Neck no lymphadenopathy, supple and no JVD Resp normal respiratory effort and clear to auscultation bilaterally Cardio regular rate, regular rhythm and no murmurs GI Negative for hepatosplenomegaly Inspection: Negative for abdominal distention Auscultation: normoactive bowel sounds Palpation: soft and tender RUQ; Negative for guarding, mass or rebound tenderness present Back/Spine no CVA tenderness and normal ROM Extremity normal to inspection General Extremety ED: Negative for edema General Extremity: Negative for edema Neuro oriented x3 and CN's II-XII intact bilaterally Sensorium / Orientation: alert Motor Exam: strength 5/5 throughout Psych mental status grossly normal Mood & Affect: Negative for depressed or tearful Skin no rashes or lesions noted and no wounds MDM MDM MDM Narrative Medical decision making narrative: White count is 7.5 with a hemoglobin of 12.2. Platelet count of 287. BMP shows a glucose of 105 BUN of 16 creatinine 0.76. Liver. Lipase is 113. Urinalysis 0-5 white cells 5-10 squamous cells 4+ bacteria. Negative nitrates. CT of the abdomen pelvis with IV contrast was obtained and is read as no acute intra- abdominal abnormality noted. Patient will receive a dose of IM Bentyl. I am not seeing an obvious cause for the patient's pain and I certainly do not see any thing to explain her chief complaint of her abdomen being twice normal size. I think at this point patient will be discharged home. Return if persistent new or worsening symptoms Lab Data Attestation: I reviewed the patient's lab results. Labs: Laboratory Results - last 24 hr 08/08/23 08/08/23 23:15 23:20 WBC 7.5 RBC 4.40 Hgb 12.2 Hct 38.4 MCV 87.3 MCH 27.7 MCHC 31.8 L RDW Std Deviation 46.9 H RDW Coeff of Peri 14.6 Plt Count 287 MPV 11.1 Immature Gran % (Auto) 0.100 Neut % (Auto) 51.9 Lymph % (Auto) 34.6 [place] % (Auto) 8.1 Eos % (Auto) 4.6 Baso % (Auto) 0.7 Absolute Neuts (auto) 3.9 Absolute Lymphs (auto) 2.58 Nucleated RBC % 0 Sodium 139 Potassium 3.9 Chloride 109 H Carbon Dioxide 27.0 Anion Gap 3 L BUN 16 Creatinine 0.76 Estim Creat Clear Calc 94.74 Est GFR (MDRD) Af Amer 112 Est GFR (MDRD) Non-Af 92 BUN/Creatinine Ratio 20.9 H Glucose 105 Calcium 9.4 Total Bilirubin 0.20 Direct Bilirubin < 0.05 AST 15 ALT 20 Alkaline Phosphatase 68 Total Protein 8.2 Albumin 3.8 Globulin 4.4 H Lipase 113 H Serum , Qual NEGATIVE Urine Color Yellow Urine Clarity Clear Urine pH 5.0 Ur Specific [place] 1.025 Urine Protein Negative Urine Glucose (UA) Normal Urine Ketones 5 H Urine Occult Blood Negative Urine Nitrite Negative Urine Bilirubin Negative Urine Urobilinogen 1 H Ur Leukocyte Esterase 25 H Urine RBC 0 SEEN Urine WBC 0-5 SEEN Ur Squamous Epith Cells 5-10 SEEN Urine Bacteria 4+ Urine Mucus 1+ Discharge Plan Triage Chief Complaint: Abd Pain ED Provider: Harris Fox Dx/Rx/DC Orders Clinical Impression: Hepatitis C, Abdominal pain Instructions: Abdominal Pain Prescriptions: No Action lisinopril 40 mg tablet 40 mg PO DAILY Qty: 90 1RF hydroxyzine pamoate [Vistaril] 50 mg capsule 50 mg PO BID PRN (Reason: itching) spironolactone PO DAILY PRN (Reason: HTN) Patient Comments: PT UNSURE OF STRENGTH amlodipine 10 mg tablet 10 mg PO DAILY Patient Comments: TAKE 1 TABLET BY MOUTH EVERY DAY Mavyret 100-40 mg tablet 3 tab PO DAILY Rx Instructions: must administer with a meal/food metronidazole 500 mg tablet 500 mg risperidone 1 mg tablet 1 mg PO BID lurasidone 20 mg tablet 20 mg PO BID Primary Care Provider: Acacia Campos Referrals: Acacia Campos MD [Primary Care Provider] - 1-2 Days if not improving Activity Restrictions/Additional Instructions: If any new, persistent or worsening symptoms please return to the emergency department especially in the next 24 hours. Disposition Disposition: Home, Self Care
[2023-08-08 23:29] LABS: Red Blood Cells-Urine 0 SEEN /hpf (0-5)
[2023-08-08 23:33] LABS: Absolute Lymphocyte Count 2.58 X10^3/uL (0.83-4.51); Absolute Neutrophil Count 3.9 X10^3/uL (2.0-7.7); Basophil# 0.05 X10^3/uL; Basophil% 0.7 % (0-1); Eosinophil# 0.34 X10^3/uL; Eosinophils% 4.6 % (0-5); Hematocrit 38.4 % (37-47); Hemoglobin 12.2 g/dL (12.0-15.0); Lymphocyte # 2.58 X10^3/ul (0.83-4.51); Lymphocyte % 34.6 % (19-41); Mean Corp Hgb Conc 31.8 g/dL (32-36); Mean Corpuscular Hgb 27.7 pg (27.0-32.0); Mean Corpuscular Volume 87.3 fL (81-99); Mean Platelet Vol. 11.1 fl (6.2-12.0); Monocyte% 8.1 % (0-10); NRBC Flagged by Analyzer 0 % (0-5); Neutrophil # 3.87 X10^3/uL (2.7-7.7); Neutrophil % 51.9 % (47-70); Platelet Count 287 K/mm3 (150-450); RBC Distribution Width CV 14.6 % (11.6-14.6); RBC Distribution Width SD 46.9 fl (35.1-43.9); White Blood Count 7.5 K/mm3 (4.4-11.0)
[2023-08-08 23:38] LABS: Color, Urine Yellow (Yellow); Glucose, Dipstick Normal (Normal); Ketone-Dipstick 5 mg/dl (Negative); Leukocyte Esterase-Dipstick 25 /ul (Negative); Nitrite-Dipstick Negative (Negative); Occult Blood-Urine Negative /ul (Negative); Protein-Dipstick Negative (Negative); Specific Gravity, Urine 1.025 (1.002-1.030); Urine Bilirubin Dipstick Negative (Negative); Urine Clarity Clear (Clear); Urine Urobilinogen 1 mg/dl (Normal)
[2023-08-08 23:53] LABS: Internal QC Validated? YES +Cl - CLEAR BKGD; Pregnancy, Serum, hCG Quali. NEGATIVE Negative
[2023-08-08 23:55] LABS: AST(SGOT) 15 U/L (15-37); Alanine Aminotransfer ALT/SGPT 20 U/L (13-56); Albumin, Serum 3.8 g/dL (3.2-5.0); Alkaline Phosphatase 68 U/L (45-117); Anion Gap 3 (5-15); BUN 16 mg/dL (7-18); BUN/Creat Ratio 20.9 RATIO (10-20); Bilirubin, Direct < 0.05 mg/dL (0.00-0.30); Calcium,Total 9.4 mg/dL (8.5-10.1); Chloride 109 mmol/L (98-107); Creatinine, Serum 0.76 mg/dL (0.55-1.02); EST Glomerular Filtration Rate 92 mL/min (>60); Est Glom Filt Rate - Afr Amer 112 mL/min (>60); Estimated Creatinine Clearance 94.74 ml/min; Globulin 4.4 g/dL (2.2-4.2); Glucose 105 mg/dL (74-106); Lipase 113 U/L (13-75); Potassium 3.9 mmol/L (3.5-5.1); Protein, Total 8.2 g/dL (6.4-8.2); Sodium Level 139 mmol/L (136-145)
[2023-08-09] LABS: Bacteria 4+ /hpf (None Seen); Mucous, Urine 1+ /hpf (<or=2+); Squamous Epithelial Cells - UA 5-10 SEEN /hpf (5-10); White Blood Cells 0-5 SEEN /hpf (0-5)
--- NOTE | 2023-08-09 00:03 | CT_ITS ---
STUDY: CT ABDOMEN AND PELVIS WITH CONTRAST REASON FOR EXAM: Female, 32 years old. Right-sided abdominal pain RADIATION DOSAGE (If Supplied By Facility): CTDIvol = ( 19.41 ) mGy, DLP = ( 1145.48 ) mGycm TECHNIQUE: Spiral CT imaging of the abdomen and pelvis was performed with intravenous contrast material (100mL Isovue-370 / ), followed by coronal and sagittal reformatting. Individualized dose optimization techniques were used for this CT. COMPARISON: No relevant priors. FINDINGS: LOWER CHEST: Normal lung bases. Normal heart. Normal pericardium. LIVER: Normal GALLBLADDER AND BILIARY TREE: Normal gallbladder. Normal biliary ductal system. SPLEEN: Normal PANCREAS: Normal ADRENAL GLANDS: Normal KIDNEYS AND URETERS: Normal kidneys. Normal ureters. BOWEL: Normal stomach. Normal small bowel. Normal appendix. Normal colon. PERITONEUM: No free intraperitoneal air or fluid. No intra-abdominal fluid collection. LYMPH NODES: No mesenteric, retroperitoneal, or pelvic lymphadenopathy. VESSELS: Normal URINARY BLADDER: Normal REPRODUCTIVE ORGANS: Normal ABDOMINAL WALL: Normal BONES: Normal CT/Abdomen/Pelvis W IV Cont ONLY IMPRESSION: 1. No acute intra-abdominal abnormality Electronically Signed: Perry Escobar MD at 0:47 EDT ,
[2023-08-09] MEDS: Dicyclomine 20 MG/2 ML Vial IM (01:16)
[2023-08-09 01:26] VITALS: BP 128/80; PULSE 90; RESP 18
== END 2023-08-09 01:30 | disposition home or self-care (01) ==
PROVIDERS: Emergency Provider Emergency Medicine; PCP Internal Medicine; Visit Provider Emergency Medicine
DX: R10.9 Unspecified abdominal pain (principal); B19.20 Unspecified viral hepatitis C without hepatic coma; I10 Essential (primary) hypertension; Z79.899 Other long term (current) drug therapy; F17.210 Nicotine dependence, cigarettes, uncomplicated; E66.9 Obesity, unspecified
CPT/HCPCS: 74177; 80048; 80076; 81001; 83690; 84703; 85025; 96372; 99282; Q9967; A4216